=== PATIENT | female | born 1970 | race Caucasian/White ===

== ENCOUNTER → 2017-02-17 | Outpatient (CLI) | payer OTHER ==
--- NOTE | 2017-02-17 17:54 | MR ---
EXAMINATION TYPE: MR brain wo con DATE OF EXAM: 02/17/2017 5:47 PM COMPARISON: NONE HISTORY: Headaches, Dizzy, Hearing Loss Multiplanar and multispin-echo imaging of the brain was performed . The ventricles, basal cisterns and sulci overlying the cerebral convexities are within normal limits. There is no evidence for midline shift or mass effect. Acute intracranial hemorrhage or extra-axial collection is not evident. The brain parenchyma reveals no abnormal increased signal. No acute edema is identified. The mastoid air cells are well-aerated. Moderate mucosal thickening of the right maxillary sinus with mild thickening of the left maxillary s inus and ethmoid air cells compatible with chronic sinusitis. IMPRESSION: Unremarkable MRI of the brain. Chronic sinusitis.
== END | disposition home or self-care (01) ==
LOC: RADMRIMAIN 17:15
PROVIDERS: ATTEND Psychiatry & Neurology Pain Medicine
DX: R51 Headache (principal)
CPT/HCPCS: 70551

== ENCOUNTER → 2017-03-12 | Outpatient (CLI) | payer OTHER ==
--- NOTE | 2017-03-12 15:59 | US ---
EXAMINATION TYPE: US transvaginal DATE OF EXAM: 03/12/2017 COMPARISON: NONE CLINICAL HISTORY: Bloating R14.0. Abdominal/pelvic bloating x 5 days; patient stated went to EC depar tment at another hospital and was found to have low potassium; ; C section x 1 TECHNIQUE: Transvaginal (TV) as patient's bladder not full and patient chose to have TV US Date of LMP: 02/26/2017 EXAM MEASUREMENTS: Uterus: 7.8 x 4.4 x 3.8cm cm Endometrial Stripe: upper right 0.4 cm and upper left endometrium = 0.3cm Right Ovary: 2.3 x 1.1 x 1.3 cm Left Ovary: 2.6 x 3.1 x 2.1 cm 1. Uterus: Anteverted; C Section scar is noted at JOSE with fluid area at scar = 1.2 x 1.2 x 0.5cm; N abothian cyst in CX = 0.5 x 0.5 x 0.3cm 2. Endometrium: Within normal limits 3. Right Ovary: couple follicles with larger = 0.8 x 0.8 x 0.8cm and small amount free fluid noted m edial to ovary 4. Left Ovary: multiple follicles with largest as complex dominant follicle =2.2 x 2.0 x 1.8cm Spectral, color and waveform doppler imaging shows good arterial and venous flow within the ovaries ; there is no evidence for ovarian torsion. 5. Bilateral Adnexa: wnl 6. Posterior cul-de-sac: wnl IMPRESSION: 1. Complex dominant follicle of the left ovary, likely relating to a hemorrhagic follicle. Follow-up in 3 menstrual cycles is recommended to ensure resolution. 2. Scarring in the lower uterine segment of the uterus from prior . 3. Unremarkable endometrial thickness in appearance to the right ovary.
== END | disposition home or self-care (01) ==
LOC: RADUSWWP 14:58
PROVIDERS: ATTEND Family Medicine
DX: R14.0 Abdominal distension (gaseous) (principal); N85.8 Other specified noninflammatory disorders of uterus; Z98.891 History of uterine scar from previous surgery
CPT/HCPCS: 76830

== ENCOUNTER → 2017-07-30 | Outpatient (CLI) | payer OTHER ==
[2017-07-30 16:25] LABS: Basophils % (A) 0 %; Eosinophils # (A) 0.4 k/uL (0-0.7); Eosinophils % (A) 4 %; HCT 39.2 % (34.0-46.0); HGB 12.1 gm/dL (11.4-16.0); Hypochromasia Slight; Lymphocytes # (A) 3.4 k/uL (1.0-4.8); Lymphocytes % (A) 35 %; MCH 28.1 pg (25.0-35.0); MCHC 30.9 g/dL (31.0-37.0); MCV 91.2 fL (80.0-100.0); Mean Platelet Volume 6.6; Monocytes # (A) 0.3 k/uL (0-1.0); Monocytes % (A) 3 %; Neutrophils # (A) 5.2 k/uL (1.3-7.7); Neutrophils % (A) 54 %; Platelet Count 424 k/uL (150-450); RDW 14.3 % (11.5-15.5); WBC 9.6 k/uL (3.8-10.6)
== END | disposition home or self-care (01) ==
LOC: LABWHC1 16:07
PROVIDERS: ATTEND Anesthesiology
DX: Z01.812 Encounter for preprocedural laboratory examination (principal)
CPT/HCPCS: 36415; 84132; 85025

== ENCOUNTER 2017-08-02 10:39 | Observation (INO) | payer OTHER ==
[2017-07-28 23:02] VITALS: BMI 23.9
[~2017-08-02 10:39] MED LIST: DEXAMETHASONE SOD PHOSPHATE 10 MG/ML 1 ML VIAL IV ONE; HEPARIN SODIUM,PORCINE 5,000 UNIT/ML 1 ML VIAL SQ ONE; LIDOCAINE 1% 20 ML VIAL (10MG/ML) FOR IV START INTRADERMA PRN; ONDANSETRON 4 MG/2 ML VIAL IVP ONE; SCOPOLAMINE 1.5MG/72HR PATCH TRANSDERM ONE; ceFAZolin IN SWFI 2 GM/20 ML SYRINGE IVP ONE
[2017-08-02 10:55] VITALS: RESP 16
[2017-08-02] MEDS: LACTATED RINGERS 1,000 ML IV SCH (11:00)
--- NOTE | 2017-08-02 11:22 | P.GSHP ---
History of Present Illness H&P Date: 08/02/17 Chief Complaint: GERD This a 46-year-old female for from Dr. Jean Pearson. MThe patient has had long- standing problems with reflux esophagitis. The patient underwent recent EGD is found have evidence of esophagitis. Patient has been well informed on the procedure of laparoscopic Lee fundoplication. The patient is aware the risk of the conversion to the open procedure, risk of injury to the stomach, liver and spleen. The patient is also a risk of recurrent GERD and dysphagia symptoms. The patient understands there is a postoperative diet of full liquids for 2 weeks after surgery. Past Medical History Past Medical History: Asthma, GERD/Reflux, Pneumonia, Rheumatoid Arthritis (RA) Additional Past Medical History / Comment(s): migraines, hialtal hernia, achalasia, "leaky bladder", hiatal hernia, History of Any Multi-Drug Resistant Organisms: None Reported Past Surgical History: Section, Tubal Ligation Additional Past Surgical History / Comment(s): ganglion cyst removed rt hand, epidural pain procedures, EGD Past Anesthesia/Blood Transfusion Reactions: No Reported Reaction Smoking Status: Current every day smoker - Past Family History Mother Family Medical History: Deep Vein Thrombosis (DVT) Medications and Allergies Home Medications Medication Instructions Recorded Confirmed Type Gabapentin [Neurontin] 800 mg PO QID 10/02/14 08/02/17 History Morphine Sulfate ER [Ms Contin 60 mg PO Q12HR 10/02/14 08/02/17 History 60Mg] Omeprazole [PriLOSEC] 40 mg PO AC-BID 10/02/14 08/02/17 History oxyCODONE-APAP 10-325MG [Percocet 1 each PO Q6HR PRN 10/02/14 08/02/17 History 10-325] ALPRAZolam [Xanax] 2 mg PO BID PRN 02/08/16 08/02/17 History Dextroamphetamine/Amphetamine 30 mg PO BID 02/08/16 08/02/17 History [Adderall] Venlafaxine HCl [Effexor] 150 mg PO BID 02/08/16 08/02/17 History Beclomethasone Dipropionate [Qvar 1 puff INHALATION BID 06/29/17 08/02/17 History 40 mcg] Brexpiprazole [Rexulti] 0.5 mg PO DAILY 06/29/17 08/02/17 History Cetirizine HCl [Zyrtec] 10 mg PO DAILY 06/29/17 08/02/17 History Oxybutynin Chloride 5 mg PO DAILY 06/29/17 08/02/17 History Triamterene/Hydrochlorothiazid 1 each PO DAILY 06/29/17 08/02/17 History [Triamterene-Hctz 37.5-25 mg Tb] Varenicline Tartrate [Chantix] 1 each PO BID 06/29/17 08/02/17 History Zonisamide [Zonegran] 100 mg PO BID 06/29/17 08/02/17 History Allergies Allergy/AdvReac Type Severity Reaction Status Date / Time amoxicillin trihydrate AdvReac Nausea & Verified 08/02/17 10:51 [From Augmentin] Vomiting potassium clavulanate AdvReac Nausea & Verified 08/02/17 10:51 [From Augmentin] Vomiting Surgical - Exam Vital Signs Temp Pulse Resp BP Pulse Ox 97.3 F L 72 16 121/73 97 08/02/17 10:54 08/02/17 10:54 08/02/17 10:54 08/02/17 10:54 08/02/17 10:54 - General well developed, no distress - Eyes PERRL - ENT normal pinna - Neck no masses - Respiratory normal expansion - Cardiovascular Rhythm: regular - Abdomen Abdomen: soft, non tender Assessment and Plan Assessment: GERD. We'll perform laparoscopic Lee fundal plication.
[2017-08-02] MEDS ORDERED: MIDAZOLAM 2 MG/2 ML VIAL ONE (11:38)
[2017-08-02] MEDS ORDERED: fentaNYL (PF) 50 MCG/ML 2 ML AMP ONE (11:38)
[2017-08-02] MEDS ORDERED: HYDROmorphone (PF) 1 MG/ML ONE (11:38)
[2017-08-02] MEDS ORDERED: NEOSTIGMINE 1 MG/ML 10 ML VIAL ONE (11:38)
[2017-08-02] MEDS ORDERED: GLYCOPYRROLATE 0.2 MG/ML 2 ML VIAL ONE (11:38)
[2017-08-02] MEDS ORDERED: PROPOFOL 10 MG/ML 20 ML VIAL IV ONE (11:38)
[2017-08-02] MEDS ORDERED: ROCURONIUM BROMIDE 10 MG/ML 10 ML VIAL IV ONE (11:38)
[2017-08-02] MEDS ORDERED: LIDOCAINE 1% INJ 10MG/ML (20 ML MDV) ONE (11:38)
[2017-08-02] MEDS ORDERED: SUCCINYLCHOLINE CHLORIDE 100 MG/5 ML SYR IV ONE (11:38)
[2017-08-02] MEDS ORDERED: SODIUM CHLORIDE 0.9% 50 ML with ceFAZolin 2,000 MG IV ONE ×2 (11:50)
[2017-08-02] MEDS ORDERED: BUPIVACAINE-EPI 0.5%-1:200,000 10 ML VIAL SQ ONE (11:57)
[2017-08-02] MEDS ORDERED: ONDANSETRON 4 MG/2 ML VIAL IVP PRN (12:50)
--- NOTE | 2017-08-02 12:50 | P.OP ---
Date of Procedure: 08/02/17 Preoperative Diagnosis: GERD Postoperative Diagnosis: GERD Procedure(s) Performed: Laparoscopic Lee fundal plication Anesthesia: ANDRE Surgeon: Franky Romero Estimated Blood Loss (ml): 5 Pathology: none sent Condition: stable Disposition: PACU Description of Procedure: The patient was placed on the operating table in the supine position. The patient received general anesthesia. And was placed in dorsal lithotomy position. The patient was prepped and draped in the usual sterile fashion. The skin incision sites were anesthetized with 1% local Xylocaine. The skin was incised in the left periumbilical area and then using a blade less 5 mm trocar under direct visualization panel cavity was entered. After adequate insufflation the laparoscope was then placed into the peritoneal cavity. Next a 5 mm trochars placed in the right epigastric position. Another 5 millimeter trocar the right lateral position. Another 5 millimeter trocar in the left lateral position a 5 mm trocar is placed in the left epigastric position. And then the initial 5 mm trocar was exchanged for a 10 mm trocar. The left lateral lobe liver was retracted. The hernia was seen. The crural defect was then dissected using the Harmonic scissors device. A 360 crural dissection was performed the esophagus stomach was reduced back into the peritoneal Cavity. The crural defect was then closed using 2-0 Ethibond suture. Next the fundus of the stomach was mobilized using the Harmonic scissors device. and then a 58-Welsh bougie dilator was placed oropharynx passed into the esophagus and stomach the fundal plication wrap was then performed by grasping the fundus posteriorly and bringing it around the esophagus and stomach fundoplication was then performed using 2-0 Ethibond suture. A 180 fundoplication was performed. Care was taken that the fundal location rested over top of the intra- abdominal esophagus. There was no injury seen to the stomach or esophagus. The dilator was then withdrawn. The abdomen was irrigated there is no bleeding seen. The trochars were then withdrawn and then skin incision sites were closed using 3-0 Monocryl suture Steri-Strips are applied. Patient thought procedure well and sent to recovery room in stable condition.
[2017-08-02] MEDS: HYDROmorphone 0.5 MG/0.5 ML SYRINGE IVP PRN ×3 (13:18→13:38)
[2017-08-02] MEDS: HYDROmorphone 2 MG/ML 1 ML SYRINGE IVP PRN ×3 (13:23→22:31)
[2017-08-02] MEDS: HYDROmorphone 1 MG/ML 1 ML SYRINGE IVP ONE ×2 (13:50→13:57)
[2017-08-02] MEDS: D5-0.45% NACL WITH KCL 20MEQ/L 1,000 ML IV SCH (16:07)
--- NOTE | 2017-08-02 16:55 | FL ---
EXAMINATION TYPE: FL esophagus cervic/pharynx DATE OF EXAM: 08/02/2017 HISTORY: Post Lee fundoplication COMPARISON: NONE TECHNIQUE: A single contrast esophagram is performed FINDINGS: There is mild delay at the level the GE junction. No obstruction or extravasation. IMPRESSION: Mild delay at the level of the GE junction
[2017-08-02] MEDS: FAMOTIDINE 20 MG/2 ML VIAL IV SCH (20:43)
[2017-08-03] MEDS: D5-0.45% NACL WITH KCL 20MEQ/L 1,000 ML IV SCH ×2 (02:20→11:28)
[2017-08-03] MEDS: HYDROmorphone 2 MG/ML 1 ML SYRINGE IVP PRN ×3 (02:20→11:27)
--- NOTE | 2017-08-03 05:04 | CONS ---
CONSULTATION This is a 46-year-old white female, status post Lee procedure for medical management/consult. Past history is tubal ligation and . History of asthma, GERD, pneumonia, rheumatoid arthritis, hiatal hernia, migraines, achalasia, leaky bladder. She has a history of ganglion cyst removal in the right hand and epidural pain procedures, EGD. Current everyday smoker. FAMILY HISTORY: Mother with DVT. HOME MEDICATIONS: 1. Neurontin 800 q.i.d. 2. MS Contin 60 mg q.12. 3. Prilosec 40 mg b.i.d. 4. Percocet 10 every 6 hours p.r.n. 5. Xanax . 6. Amphetamine 30 mg b.i.d. 7. Effexor 150 b.i.d. 8. Qvar 1 puff b.i.d. 9. Rexulti 0.5 mg daily. 10.Zyrtec 10 mg daily. 11.Oxybutynin 5 mg daily. 12.Dyazide 1 tablet daily. 13.Chantix 1 tab b.i.d. 14.Zonegran 100 mg b.i.d. ALLERGIES: AMOXICILLIN, POTASSIUM. PHYSICAL EXAM: Temp 97, pulse 72, respirations 16, blood pressure 120/70, O2 97%. CARDIOVASCULAR: S1, S2. LUNGS: Clear. GI: Soft. HEMATOLOGY: Negative Homans. PSYCH: Fair mood affect. NEUROLOGIC: Alert and oriented x3. OPHTHALMOLOGICAL: Negative. Pupils equal, round, reactive. GI: Incision clean, dry, intact. ASSESSMENT: Status post Lee fundoplication. Multiple medications, home medications will be ordered. Possible discharge home next 24 to 48 hours. She is asymptomatic from pulmonary and cardiac standpoint at this time. Medications were adjusted status post endoscopy. Status post barium swallow to see if surgery was successful. MMODL / IJN: [id number] /
[2017-08-03 08:33] VITALS: TEMP 97.8
[2017-08-03] MEDS ORDERED: ENOXAPARIN 40 MG/0.4 ML SYRINGE SQ SCH (09:00)
[2017-08-03] MEDS: LACTATED RINGERS 1,000 ML IV SCH (09:38)
[2017-08-03] MEDS: FAMOTIDINE 20 MG/2 ML VIAL IV SCH (09:51)
--- NOTE | 2017-08-03 12:31 | P.DS ---
Providers Date of admission: 08/02/17 22:44 Expected date of discharge: 08/03/17 Attending physician: Franky Romero Consults: 08/02/17 12:50 Consult Physician Routine Consulting Provider: Jean Broderick Reason/Comments: med manage Do you want consulting provider notified?: Yes Primary care physician: [facility] Course: 46-year-old female presented to undergo a laparoscopic lee fundoplication for long-standing problem with reflux esophagitis. Patient underwent a recent EGD which did show evidence of esophagitis. Patient tolerated the procedure was felt to be hemodynamically stable and appropriate proceed with a discharge on August 03. Postoperative diet to full liquids for 2 weeks after surgery was reinforced. Impression discharge diagnosis Status post August 02 laparoscopic Lee fundoplication for reflux esophagitis A recent EGD showing evidence of esophagitis Hiatal hernia Rheumatoid arthritis The above impression and plan of care have been discussed and directed by signing physician. [place] nurse practitioner acting as scribe for signing physician. Plan - Discharge Summary Discharge Rx Participant: No New Discharge Prescriptions: Continue Morphine Sulfate ER [Ms Contin] 60 mg PO Q12HR oxyCODONE-APAP 10-325MG [Percocet 10-325 mg] 1 tab PO BID PRN PRN Reason: Pain Gabapentin [Neurontin] 800 mg PO QID Omeprazole [PriLOSEC] 40 mg PO AC-BID Dextroamphetamine/Amphetamine [Adderall] 30 mg PO BID Beclomethasone Dipropionate [Qvar 40 mcg] 1 puff INHALATION RT-BID Brexpiprazole [Rexulti] 0.5 mg PO DAILY Cetirizine HCl [Zyrtec] 10 mg PO DAILY Oxybutynin Chloride 5 mg PO DAILY Zonisamide [Zonegran] 100 mg PO BID Varenicline Tartrate [Chantix] 1 tab PO BID ALPRAZolam [Xanax] 1 mg PO HS Venlafaxine HCl [Effexor XR] 150 mg PO BID Triamterene-Hctz 37.5-25Mg [Dyazide 37.5-25 Capsule] 1 cap PO DAILY Discharge Medication List Gabapentin [Neurontin] 800 mg PO QID 10/02/14 [History] Morphine Sulfate ER [Ms Contin] 60 mg PO Q12HR 10/02/14 [History] Omeprazole [PriLOSEC] 40 mg PO AC-BID 10/02/14 [History] oxyCODONE-APAP 10-325MG [Percocet 10-325 mg] 1 tab PO BID PRN 10/02/14 [History] Dextroamphetamine/Amphetamine [Adderall] 30 mg PO BID 02/08/16 [History] Beclomethasone Dipropionate [Qvar 40 mcg] 1 puff INHALATION RT-BID 06/29/17 [ History] Brexpiprazole [Rexulti] 0.5 mg PO DAILY 06/29/17 [History] Cetirizine HCl [Zyrtec] 10 mg PO DAILY 06/29/17 [History] Oxybutynin Chloride 5 mg PO DAILY 06/29/17 [History] Varenicline Tartrate [Chantix] 1 tab PO BID 06/29/17 [History] Zonisamide [Zonegran] 100 mg PO BID 06/29/17 [History] ALPRAZolam [Xanax] 1 mg PO HS 08/02/17 [History] Triamterene-Hctz 37.5-25Mg [Dyazide 37.5-25 Capsule] 1 cap PO DAILY 08/02/17 [ History] Venlafaxine HCl [Effexor XR] 150 mg PO BID 08/02/17 [History] Follow up Appointment(s)/Referral(s): Franky Romero MD [STAFF PHYSICIAN] - 2 Weeks Activity/Diet/Wound Care/Special Instructions: No tub bath for six weeks. Shower daily. No lifting over 10 pounds for the next 6 weeks. Full liquid for 2 weeks after surgery May use ice packs to surgical site. No driving while taking narcotic for pain. Keep dressings to surgical site dry Discharge Disposition: HOME SELF-CARE
[2017-08-03 12:45] VITALS: BP 127/73; PULSE 60
== END 2017-08-03 13:04 | disposition home or self-care (01) ==
LOC: OR 10:39 → 6PED 12:33 → OR 22:44
PROVIDERS: ADMIT Surgery; ATTEND Surgery
DX: K21.0 Gastro-esophageal reflux disease with esophagitis (principal); K44.9 Diaphragmatic hernia without obstruction or gangrene; J45.909 Unspecified asthma, uncomplicated; M06.9 Rheumatoid arthritis, unspecified; Z87.01 Personal history of pneumonia (recurrent); G43.909 Migraine, unspecified, not intractable, without status migrainosus; F17.200 Nicotine dependence, unspecified, uncomplicated; Z79.899 Other long term (current) drug therapy; Z79.891 Long term (current) use of opiate analgesic; Z79.51 Long term (current) use of inhaled steroids; Z88.0 Allergy status to penicillin; M79.7 Fibromyalgia
CPT/HCPCS: 74210; 81025

== ENCOUNTER 2018-03-09 18:17 | Emergency (ER) | payer OTHER ==
[2018-03-09 19:05] VITALS: BP 106/75; PULSE 94; RESP 18; TEMP 98.5
--- NOTE | 2018-03-09 20:31 | XR ---
EXAMINATION TYPE: XR KUB DATE OF EXAM: 03/09/2018 COMPARISON: NONE HISTORY: Swallowed a crown TECHNIQUE: 2 views FINDINGS: 2 upright views were obtained and show no sign of intestinal obstruction or pneumoperitoneu m. There is no sign of radiopaque foreign body. Lung bases are clear. There are no pathologic calcifi cations. IMPRESSION: Normal exam. No foreign body seen.
--- NOTE | 2018-03-09 20:32 | XR ---
EXAMINATION TYPE: XR chest 1V DATE OF EXAM: 03/09/2018 COMPARISON: NONE HISTORY: Chest pain. Swallowed a crown. TECHNIQUE: Single frontal view of the chest is obtained. FINDINGS: Heart and mediastinum are normal. Lungs are clear. Diaphragm is normal. There is no sign o f a radiopaque foreign body. IMPRESSION: Normal chest. No foreign body seen. No change.
--- NOTE | 2018-03-09 21:48 | ED ---
General Adult HPI - General Chief complaint: Skin/Abscess/Foreign Body Stated complaint: swallowed dental implant Time Seen by Provider: 03/09/18 19:36 Source: patient, RN notes reviewed Mode of arrival: ambulatory Limitations: no limitations - History of Present Illness Initial comments: 47-year-old female presents to the emergency department for a chief complaint of possible foreign body ingestion earlier today. Patient states she has had veneer tooth that has been loose, due to fix this week. However today it broke off and patient swallowed it. Patient states it does have a metal post on it. Patient is concerned about the metal post in any damage to cause. Patient denies any foreign body sensation. Patient denies any abdominal pain. Patient did attempt to make herself vomit multiple times which did not bring up the tooth. Patient has no other complaints at this time including shortness of breath, chest pain, abdominal pain, nausea or vomiting, headache, or visual changes. - Related Data Home Medications Medication Instructions Recorded Confirmed Gabapentin [Neurontin] 800 mg PO QID 10/02/14 03/09/18 Omeprazole [PriLOSEC] 20 mg PO DAILY 10/02/14 03/09/18 Zonisamide [Zonegran] 200 mg PO HS 06/29/17 03/09/18 Venlafaxine HCl [Effexor XR] 150 mg PO DAILY 08/02/17 03/09/18 Montelukast [Singulair] 10 mg PO HS 03/09/18 03/09/18 Allergies Allergy/AdvReac Type Severity Reaction Status Date / Time amoxicillin trihydrate AdvReac Nausea & Verified 03/09/18 19:40 [From Augmentin] Vomiting potassium clavulanate AdvReac Nausea & Verified 03/09/18 19:40 [From Augmentin] Vomiting Review of Systems ROS Statement: Those systems with pertinent positive or pertinent negative responses have been documented in the HPI. ROS Other: All systems not noted in ROS Statement are negative. Past Medical History Past Medical History: Asthma, GERD/Reflux, Pneumonia, Rheumatoid Arthritis (RA) Additional Past Medical History / Comment(s): migraines, hialtal hernia, achalasia, "leaky bladder", hiatal hernia, History of Any Multi-Drug Resistant Organisms: None Reported Past Surgical History: Section, Hernia Repair, Tubal Ligation Additional Past Surgical History / Comment(s): ganglion cyst removed rt hand, epidural pain procedures, EGD Past Anesthesia/Blood Transfusion Reactions: No Reported Reaction Past Psychological History: Anxiety, Bipolar, Depression Smoking Status: Current every day smoker Past Alcohol Use History: None Reported Past Drug Use History: Marijuana - Past Family History Mother Family Medical History: Deep Vein Thrombosis (DVT) General Exam Limitations: no limitations General appearance: alert, in no apparent distress Head exam: Present: atraumatic, normocephalic, normal inspection Eye exam: Present: normal appearance, PERRL, EOMI. Absent: scleral icterus, conjunctival injection, periorbital swelling ENT exam: Present: normal exam, normal oropharynx (No foreign body noted in the oropharynx. Patient is missing tooth 9.), mucous membranes moist Neck exam: Present: normal inspection, full ROM. Absent: tenderness, meningismus, lymphadenopathy Respiratory exam: Present: normal lung sounds bilaterally. Absent: respiratory distress, wheezes, rales, rhonchi, stridor Cardiovascular Exam: Present: regular rate, normal rhythm, normal heart sounds. Absent: systolic murmur, diastolic murmur, rubs, gallop, clicks GI/Abdominal exam: Present: soft, normal bowel sounds. Absent: distended, tenderness (No tenderness noted in the abdomen), guarding, rebound, rigid Course Vital Signs 03/09/ 19:02 Temperature 98.5 F Pulse Rate 94 Respiratory 18 Rate Blood Pressure 106/75 O2 Sat by Pulse 98 Oximetry Medical Decision Making - Medical Decision Making 47-year-old female presents to the emergency determine for possible foreign body ingestion occurring earlier today. Patient accidentally swallowed a veneer tooth. Patient denies any foreign body sensation in the throat. Patient denies any abdominal pain. Patient did attempt to make herself vomit multiple times but was not successful in bringing up the tooth. On exam patient does not have any abdominal tenderness. Oropharynx clear. X-ray KUB and chest shows no foreign bodies noted. I did discuss with patient that with time the tooth will pass in the stool. I educated patient that if she has severe abdominal pain or worsening symptoms to return to the emergency department. Patient is aware of this and will follow up with primary care in 1- 2 days otherwise. Disposition Clinical Impression: Foreign body ingestion Disposition: HOME SELF-CARE Condition: Good Instructions: Foreign Body Ingestion (ED) Additional Instructions: Watch for tooth to be passed in stool. Please follow up with primary care in 1- 2 days. If you have any worsening symptoms or abdominal pain return to the emergency department. Is patient prescribed a controlled substance at d/c from ED?: No Referrals: Jean Broderick MD [Primary Care Provider] - 1-2 days Time of Disposition: 21:47
== END 2018-03-09 22:35 | disposition home or self-care (01) ==
LOC: EC 18:17
DX: T18.9XXA Foreign body of alimentary tract, part unspecified, initial encounter (principal); J45.909 Unspecified asthma, uncomplicated; K21.9 Gastro-esophageal reflux disease without esophagitis; F41.9 Anxiety disorder, unspecified; F31.9 Bipolar disorder, unspecified; F17.200 Nicotine dependence, unspecified, uncomplicated; Z98.51 Tubal ligation status; Z98.890 Other specified postprocedural states; Z79.899 Other long term (current) drug therapy; Z88.0 Allergy status to penicillin
CPT/HCPCS: 71045; 74018; 99283

== ENCOUNTER 2021-08-14 18:51 | Emergency (ER) | payer OTHER ==
[2021-08-14 18:59] VITALS: TEMP 97.6
--- NOTE | 2021-08-14 20:09 | ED ---
General Adult HPI - General Chief complaint: Recheck/Abnormal Lab/Rx Stated complaint: covid test Time Seen by Provider: 08/14/21 19:45 Source: patient, RN notes reviewed Mode of arrival: ambulatory Limitations: no limitations - History of Present Illness Initial comments: Patient is a pleasant 50-year-old female presenting to the emergency department requesting testing for COVID-19. Patient states she was exposed and need to test to return to work. Patient denies any symptoms and has no complaints. - Related Data Home Medications Medication Instructions Recorded Confirmed Gabapentin [Neurontin] 800 mg PO QID 10/02/14 03/09/18 Omeprazole [PriLOSEC] 20 mg PO DAILY 10/02/14 03/09/18 Zonisamide [Zonegran] 200 mg PO HS 06/29/17 03/09/18 Venlafaxine HCl [Effexor XR] 150 mg PO DAILY 08/02/17 03/09/18 Montelukast [Singulair] 10 mg PO HS 03/09/18 03/09/18 Allergies Allergy/AdvReac Type Severity Reaction Status Date / Time amoxicillin trihydrate AdvReac Nausea & Verified 08/14/21 18:59 [From Augmentin] Vomiting potassium clavulanate AdvReac Nausea & Verified 08/14/21 18:59 [From Augmentin] Vomiting Review of Systems ROS Statement: Those systems with pertinent positive or pertinent negative responses have been documented in the HPI. ROS Other: All systems not noted in ROS Statement are negative. Constitutional: Denies: fever Eyes: Denies: eye pain ENT: Denies: ear pain Respiratory: Denies: cough Cardiovascular: Denies: chest pain Endocrine: Denies: fatigue Gastrointestinal: Denies: abdominal pain Past Medical History Past Medical History: Asthma, GERD/Reflux, Pneumonia, Rheumatoid Arthritis (RA) Additional Past Medical History / Comment(s): migraines, hialtal hernia, achalasia, "leaky bladder", hiatal hernia, History of Any Multi-Drug Resistant Organisms: None Reported Past Surgical History: Section, Hernia Repair, Tubal Ligation Additional Past Surgical History / Comment(s): ganglion cyst removed rt hand, epidural pain procedures, EGD Past Anesthesia/Blood Transfusion Reactions: No Reported Reaction Past Psychological History: Anxiety, Bipolar, Depression Smoking Status: Current every day smoker Past Alcohol Use History: None Reported Past Drug Use History: Marijuana - Past Family History Mother Family Medical History: Deep Vein Thrombosis (DVT) General Exam Limitations: no limitations General appearance: alert, in no apparent distress Head exam: Present: normocephalic Respiratory exam: Present: normal lung sounds bilaterally Cardiovascular Exam: Present: regular rate, normal rhythm Extremities exam: Present: normal inspection Neurological exam: Present: alert Psychiatric exam: Present: normal affect, normal mood Skin exam: Present: normal color Course Vital Signs 08/14/21 18:57 Temperature 97.6 F Pulse Rate 97 Respiratory 16 Rate Blood Pressure 145/68 O2 Sat by Pulse 98 Oximetry Medical Decision Making - Lab Data Lab Results 08/14/21 Range/Units 19:03 Coronavirus (PCR) Not Detected (Not Detectd) Disposition Clinical Impression: Exposure to COVID-19 virus Disposition: HOME SELF-CARE Condition: Stable Instructions (If sedation given, give patient instructions): Coronavirus Disease 2019 (COVID-19) Additional Instructions: There is potential for false negative test. Continue to wear a mask when exposed to other people. Return for fevers, difficulty breathing, not tolerating fluids, worsening or changing symptoms or other concerns. Is patient prescribed a controlled substance at d/c from ED?: No Referrals: Stephanie Rubio MD [Primary Care Provider] - 1-2 days Time of Disposition: 20:09
[2021-08-14 20:49] VITALS: RESP 18
[2021-08-14 20:51] VITALS: BP 143/78; PULSE 85
== END 2021-08-14 20:35 | disposition home or self-care (01) ==
LOC: EC 18:51
DX: Z11.52 Encounter for screening for COVID-19 (principal); Z20.822 Contact with and (suspected) exposure to COVID-19; J45.909 Unspecified asthma, uncomplicated; K21.9 Gastro-esophageal reflux disease without esophagitis; M06.9 Rheumatoid arthritis, unspecified; F31.9 Bipolar disorder, unspecified; F41.9 Anxiety disorder, unspecified; F17.200 Nicotine dependence, unspecified, uncomplicated; F12.90 Cannabis use, unspecified, uncomplicated; Z79.899 Other long term (current) drug therapy
CPT/HCPCS: 87635; 99282

== ENCOUNTER → 2021-10-31 | Outpatient (CLI) | payer OTHER ==
--- NOTE | 2021-10-31 08:48 | CTL ---
EXAMINATION TYPE: CT Low Dose Lung DATE OF EXAM ORDERED: 10/31/2021 HISTORY: Long-term tobacco use. Lung cancer screening CT DLP: 70.[address] CTDI: 2.40 mGy Automated exposure control for dose reduction was used. SCREENING VISIT: Baseline COMPARISON: None TECHNIQUE: Low dose computed tomography scan was performed through the chest at 1 mm thick sections a nd reconstructed images in multiple planes at 1 mm and [address] DIAGNOSTIC QUALITY: Satisfactory FINDINGS: LUNG NODULES: None. LUNGS: COPD: Severity: Mild to moderate Fibrosis: Severity: None Lymph nodes: No greater than 1.0 cm Other findings: Dependent atelectasis bilateral lower lobes. RIGHT PLEURAL SPACE: Effusion: None Calcification: None Thickening: None Pneumothorax: None LEFT PLEURAL SPACE: Effusion: None Calcification: None Thickening: None Pneumothorax: None HEART: Heart Size: Normal Coronary Calcification: None Pericardial Effusion: None OTHER FINDINGS: Upper abdomen: Visualized portion of liver is slightly hypodense relative to spleen consistent with d iffuse fatty infiltration Bony thorax: None Supraclavicular region: Thyroid gland only minimally imaged. Other: None IMPRESSION: Mild to moderate emphysematous change without significant greater than 5 mm pulmonary nod ules CT LUNG RAD AND CT CHEST RECOMMENDATION: Lung-Rad 1 Negative: Continue annual screening with LDCT in 12 months. S Modifier (other clinically significant findings): None
--- NOTE | 2021-10-31 09:05 | XR ---
EXAMINATION TYPE: XR shoulder complete RT DATE OF EXAM: 10/31/2021 COMPARISON: NONE HISTORY: Pain TECHNIQUE: Three views are submitted. FINDINGS: The osseous structures are intact. There is no acute fracture or dislocation. The AC joint arthropa thy. Perihilar and lower right lower lobe subsegmental changes in. IMPRESSION: 1. AC joint arthropathy. 2. Incidental note made of right perihilar subsegmental areas of consolidation in the right lung kian elate clinically.
--- NOTE | 2021-10-31 09:15 | BD ---
EXAMINATION TYPE: Axial Bone Density DATE OF EXAM: 10/31/2021 COMPARISON: NONE CLINICAL HISTORY: 50 years year old Female. ICD-10 CODE: M810 age-related osteoporosis. Height: 5 FT 2 1/4 IN Weight: 138 FRAX RISK QUESTIONS: Alcohol (3 or more units per day): NO Family History (Parent hip fracture): NO Glucocorticoids (More than 3mos): NO (Ex: prednisone, prednisolone, methylprednisolone, dexamethasone, and hydrocortisone). History of Fracture in Adulthood: YES Secondary Osteoporosis: 1. Type 1 Diabetes: NO 2. Hyperthyroidism: NO 3. Menopause before 45: NO 4. Malnutrition: NO 5. Chronic liver disease: NO Rheumatoid Arthritis: NO Current Tobacco Use: YES RISK FACTORS HISTORY OF: History of Wrist Fracture: RT WRIST When: 2006 Surgery to Spine/Hip(right/left)/Wrist (right/left): NO Family History of Osteoporosis: YES Active: YES Diet low in dairy products/other sources of calcium: NO Postmenopausal woman: YES Take estrogen and/or progesterone medications: NO Lost more than 2 inches in height since high school: NO Frequent falls: NO Poor Health: GOOD Hyperparathyroidism: NO Adrenal Insufficiency: NO MEDICATIONS: Additional Medications: OMEPRAZOLE, GABAPENTIN,SEROQUEL, LIPITOR,CLONIDINE Additional History: EXAM MEASUREMENTS: Bone mineral densitometry was performed using the [employer] System. Bone mineral density as measured about the Lumbar spine is: ----- L1-L4(G/cm2): 1.158 T Score Values are as follows: ----- L1: -0.4 ----- L2: 0.1 ----- L3: 0.2 ----- L4: -0.6 ----- L1-L4: -0.2 BASELINE Bone mineral density about the R hip (g/cm2): 0.881 Bone mineral density about the L hip (g/cm2): 0.881 T Score values are as follows: -----R Neck: -1.1 -----L Neck: -1.1 -----R Total: -1.2 -----L Total: -1.4 BASELINE FRAX%s: The graph provided illustrates a 8.2 % chance for a major osteoporotic fx and a 0.5% chance f or the hips probability for fx in 10 years time. IMPRESSION: Osteopenia (T Score between -2.5 and -1). There is slightly increased risk of fracture and the patient may be considered for treatment. Re-Screen 2-5 years. NOTE: T-SCORE=SD OF THE YOUNG ADULT MEAN.
--- NOTE | 2021-11-03 13:40 | MM ---
Reason for exam: screening (asymptomatic). Last mammogram was performed 12 years ago. History: Family history of breast cancer in cousin at age 34. Took hormonal contraceptives for 4 years beginning at age 16. Physical Findings: A clinical breast exam by your physician is recommended on an annual basis and results should be correlated with mammographic findings. MG 3D Screening Mammo W/Cad Bilateral CC and MLO view(s) were taken. Prior study comparison: November 07, 2009, left breast mammogram dig work up. October 22, 2009, bilateral digital screening mammogram. There are scattered fibroglandular densities. No significant changes when compared with prior studies. ASSESSMENT: Negative, BI-RAD 1 RECOMMENDATION: Routine screening mammogram of both breasts in 1 year.
== END | disposition home or self-care (01) ==
LOC: RADMAMWWP 06:59
PROVIDERS: ATTEND Internal Medicine
DX: Z12.31 Encounter for screening mammogram for malignant neoplasm of breast (principal); Z12.2 Encounter for screening for malignant neoplasm of respiratory organs; M85.89 Other specified disorders of bone density and structure, multiple sites; R91.8 Other nonspecific abnormal finding of lung field; M19.011 Primary osteoarthritis, right shoulder; Z87.891 Personal history of nicotine dependence; Z80.3 Family history of malignant neoplasm of breast
CPT/HCPCS: 71271; 77063; 77067; 77080

== ENCOUNTER 2021-12-19 10:19 | Day surgery (SDC) | payer OTHER ==
[2021-12-18 14:42] VITALS: BMI 24.7
[~2021-12-19 10:19] MED LIST changes: -DEXAMETHASONE SOD PHOSPHATE 10 MG/ML 1 ML VIAL IV ONE; -HEPARIN SODIUM,PORCINE 5,000 UNIT/ML 1 ML VIAL SQ ONE; +LACTATED RINGERS 1,000 ML IV SCH; -LIDOCAINE 1% 20 ML VIAL (10MG/ML) FOR IV START INTRADERMA PRN; -ONDANSETRON 4 MG/2 ML VIAL IVP ONE; -SCOPOLAMINE 1.5MG/72HR PATCH TRANSDERM ONE; -ceFAZolin IN SWFI 2 GM/20 ML SYRINGE IVP ONE
[2021-12-19 10:57] VITALS: TEMP 97.1
[2021-12-19] MEDS ORDERED: PROPOFOL 10 MG/ML 20 ML VIAL IV ONE (11:58)
--- NOTE | 2021-12-19 12:07 | P.PCN ---
Date of Procedure: 12/19/21 Procedure(s) Performed: BRIEF HISTORY: Patient is a 50-year-old pleasant white female scheduled for an elective colonoscopy as a part of screening for colorectal neoplasia. PROCEDURE PERFORMED: Attempted Colonoscopy. PREOPERATIVE DIAGNOSIS: Screening for colon cancer. IV sedation per Anesthesia. PROCEDURE: After informed consent was obtained, the patient, was brought into the endoscopy unit. IV sedation was administered by Anesthesia under continuous monitoring. Digital rectal examination was normal. Initially the Olympus CF-160 flexible video colonoscope was then inserted in the rectum, gradually advanced into the distal sigmoid colon there was solid stool noted in the rectum and the sigmoid colon. The lumen was not visible. At this time the procedure was terminated and the patient tolerated the procedure well. IMPRESSION: Poor prep and hence procedure terminated RECOMMENDATIONS: Findings of this examination were discussed with the patient as well as a family. He was advised to rescheduled for a screening colonoscopy colonoscopy with a two-day prep.
[2021-12-19 12:25] VITALS: RESP 16
[2021-12-19 12:44] VITALS: BP 105/58; PULSE 85
== END 2021-12-19 12:56 | disposition home or self-care (01) ==
LOC: ORWHC2ENDO 10:19
PROVIDERS: ATTEND Internal Medicine Gastroenterology
DX: Z12.11 Encounter for screening for malignant neoplasm of colon (principal); K21.9 Gastro-esophageal reflux disease without esophagitis; J45.909 Unspecified asthma, uncomplicated; F17.210 Nicotine dependence, cigarettes, uncomplicated; M06.9 Rheumatoid arthritis, unspecified; Z79.899 Other long term (current) drug therapy; Z88.0 Allergy status to penicillin
CPT/HCPCS: 81025; J2704; G0121

== ENCOUNTER 2022-01-27 21:05 | Observation (INO) | payer OTHER ==
[2022-01-27] MEDS ORDERED: SODIUM CHLORIDE 0.9% 1,000 ML IV STA (23:17)
[2022-01-27] MEDS ORDERED: diphenhydrAMINE 50 MG/ML 1 ML VIAL IVP STA (23:17)
--- NOTE | 2022-01-27 23:17 | ED ---
Overdose HPI - General Chief Complaint: Overdose Stated Complaint: Drug Intoxication Time Seen by Provider: 01/27/22 23:16 Source: patient, RN notes reviewed, old records reviewed Mode of arrival: ambulatory Limitations: no limitations, altered mental status - History of Present Illness Initial Comments: This is a 51-year-old female not altered becomes evident on the influence of some sort of drug abuse. Drug use. Patient is having nonpurposeful movements. It is unclear whether or drugs patient doesn't she is not willing to admit. In that matter she is a poor strain which she presents with friend who wants patient checked out. Patient is not taking suicide attempt MD Complaint: intentional overdose -: hour(s) Intent: unwilling to say How Overdose Was Discovered: family/friend present at time Context: Accidental Overdose: wanted to get high Associated Symptoms: depression Treatments Prior to Arrival: none - Related Data Home Medications Medication Instructions Recorded Confirmed Omeprazole [PriLOSEC] 30 mg PO DAILY 10/02/14 12/19/21 Crestor (Unknown Dose) 1 tab PO DAILY 12/18/21 12/19/21 Escitalopram Oxalate [Lexapro] 10 mg PO QAM 12/18/21 12/19/21 Fluticasone Nasal [place] [Flonase 1 spray EA NOSTRIL DAILY 12/18/21 12/19/21 Nasal [place]] Gabapentin 600 mg PO BID 12/18/21 12/19/21 Meloxicam (Unknown Dose) 1 tab PO DAILY 12/18/21 12/19/21 QUEtiapine FUMARATE [SEROquel] 300 mg PO HS 12/18/21 12/19/21 cloNIDine HCL [Catapres] 0.1 mg PO BID 12/18/21 12/19/21 Allergies Allergy/AdvReac Type Severity Reaction Status Date / Time amoxicillin trihydrate AdvReac Nausea & Verified 01/27/22 22:36 [From Augmentin] Vomiting potassium clavulanate AdvReac Nausea & Verified 01/27/22 22:36 [From Augmentin] Vomiting Review of Systems ROS Statement: Those systems with pertinent positive or pertinent negative responses have been documented in the HPI. ROS Other: All systems not noted in ROS Statement are negative. Past Medical History Past Medical History: Asthma, GERD/Reflux, Pneumonia, Rheumatoid Arthritis (RA) Additional Past Medical History / Comment(s): Migraines, hialtal hernia, achalasia(causes difficulty swallowing), "leaky bladder", irregular heart beat, Pre-Diabetic. History of Any Multi-Drug Resistant Organisms: None Reported Past Surgical History: Section, Hernia Repair, Tubal Ligation Additional Past Surgical History / Comment(s): Ganglion cyst removed right hand, epidural pain procedures, EGD. Past Anesthesia/Blood Transfusion Reactions: No Reported Reaction Past Psychological History: Anxiety, Bipolar, Depression Smoking Status: Current every day smoker Past Alcohol Use History: None Reported Past Drug Use History: None Reported - Past Family History Mother Family Medical History: Deep Vein Thrombosis (DVT) General Exam General appearance: appears intoxicated (Altered), anxious Head exam: Present: atraumatic, normocephalic, normal inspection Eye exam: Present: normal appearance, PERRL, EOMI. Absent: scleral icterus, conjunctival injection, periorbital swelling ENT exam: Present: normal exam, mucous membranes moist Neck exam: Present: normal inspection. Absent: tenderness, meningismus, lymphadenopathy Respiratory exam: Present: normal lung sounds bilaterally. Absent: respiratory distress, wheezes, rales, rhonchi, stridor Cardiovascular Exam: Present: regular rate, normal rhythm, normal heart sounds. Absent: systolic murmur, diastolic murmur, rubs, gallop, clicks GI/Abdominal exam: Present: soft, normal bowel sounds. Absent: distended, tenderness, guarding, rebound, rigid Extremities exam: Present: normal inspection, full ROM, normal capillary refill. Absent: tenderness, pedal edema, joint swelling, calf tenderness Back exam: Present: normal inspection Neurological exam: Present: alert, oriented X3, CN II-XII intact Psychiatric exam: Present: normal affect, normal mood Skin exam: Present: warm, dry, intact, normal color. Absent: rash Course Vital Signs 01/27/22 22:27 Temperature 98 F Pulse Rate 62 Respiratory 19 Rate Blood Pressure 140/72 O2 Sat by Pulse 98 Oximetry - Reevaluation(s) Reevaluation #1: 01/27/22 23:30 Medical record is reviewed Reevaluation #2: 01/28/22 03:02 Patient remains significantly sedated chemically sedated secondary to drug intoxication Reevaluation #3: 01/28/22 03:02 (Patient remains somnolent throughout ER stay - Consultations Consultation #1: Spoke with Dr. Dr. Rubio who agrees to admit this patient Medical Decision Making - Medical Decision Making 51 female of unknown accidental versus intentional drug overdose. Patient be admitted for continued monitoring - Lab Data Result diagrams: 01/28/22 01:04 01/28/22 01:04 Lab Results 01/28/22 01/28/22 01/28/22 Range/Units 01:04 01:04 01:04 WBC 14.6 H (3.8-10.6) k/uL RBC 4.36 (3.80-5.40) m/uL Hgb 12.8 (11.4-16.0) gm/dL Hct 39.3 (34.0-46.0) % MCV 90.1 (80.0-100.0) fL MCH 29.3 (25.0-35.0) pg MCHC 32.5 (31.0-37.0) g/dL RDW 14.7 (11.5-15.5) % Plt Count 335 (150-450) k/uL MPV 7.1 Neutrophils % 64 % Lymphocytes % 26 % Monocytes % 6 % Eosinophils % 1 % Basophils % 1 % Neutrophils # 9.3 H (1.3-7.7) k/uL Lymphocytes # 3.8 (1.0-4.8) k/uL Monocytes # 0.9 (0-1.0) k/uL Eosinophils # 0.2 (0-0.7) k/uL Basophils # 0.1 (0-0.2) k/uL Hypochromasia Slight PT 10.4 (9.0-12.0) sec INR 0.9 (<1.2) Sodium 141 (137-145) mmol/L Potassium 3.5 (3.5-5.1) mmol/L Chloride 108 H (98-107) mmol/L Carbon Dioxide 25 (22-30) mmol/L Anion Gap 8 mmol/L BUN 16 (7-17) mg/dL Creatinine 0.59 (0.52-1.04) mg/dL Est GFR (CKD-EPI)AfAm >90 (>60 ml/min/1.73 sqM) Est GFR (CKD-EPI)NonAf >90 (>60 ml/min/1.73 sqM) Glucose 98 (74-99) mg/dL Calcium 9.2 (8.4-10.2) mg/dL Total Bilirubin 1.0 (0.2-1.3) mg/dL AST 40 H (14-36) U/L ALT 24 (4-34) U/L Alkaline Phosphatase 102 (38-126) U/L Total Protein 7.4 (6.3-8.2) g/dL Albumin 4.6 (3.5-5.0) g/dL Lipase 35 (23-300) U/L Salicylates <1.0 mg/dL Acetaminophen <10.0 ug/mL Serum Alcohol <10 mg/dL - EKG Data -: EKG Interpreted by Me (EKG shows sinus rhythm 62 IA 149 QRS 100 QTc 443) - Radiology Data Radiology results: report reviewed (CT brain negative for acute disease), image reviewed Disposition Clinical Impression: Accidental drug overdose, Drug overdose Disposition: ADMITTED IP TO THIS HOSP Condition: Fair Is patient prescribed a controlled substance at d/c from ED?: No Referrals: Stephanie Rubio MD [Primary Care Provider] - 1-2 days
[2022-01-27] MEDS ORDERED: diphenhydrAMINE 50 MG/ML 1 ML VIAL IM STA (23:54)
[2022-01-27] MEDS ORDERED: HALOPERIDOL LACTATE 5 MG/ML 1 ML VIAL IM STA (23:55)
[2022-01-28 01:16] LABS: Basophils # (A) 0.1 k/uL (0-0.2); Basophils % (A) 1 %; Eosinophils # (A) 0.2 k/uL (0-0.7); Eosinophils % (A) 1 %; HCT 39.3 % (34.0-46.0); HGB 12.8 gm/dL (11.4-16.0); Hypochromasia Slight; Lymphocytes # (A) 3.8 k/uL (1.0-4.8); Lymphocytes % (A) 26 %; MCH 29.3 pg (25.0-35.0); MCHC 32.5 g/dL (31.0-37.0); MCV 90.1 fL (80.0-100.0); Mean Platelet Volume 7.1; Monocytes # (A) 0.9 k/uL (0-1.0); Monocytes % (A) 6 %; Neutrophils # (A) 9.3 k/uL (1.3-7.7); Neutrophils % (A) 64 %; Platelet Count 335 k/uL (150-450); RBC 4.36 m/uL (3.80-5.40); RDW 14.7 % (11.5-15.5); WBC 14.6 k/uL (3.8-10.6)
[2022-01-28 01:27] LABS: ALT 24 U/L (4-34); AST 40 U/L (14-36); Acetaminophen <10.0 ug/mL; African American GFR (CKD) >90 (>60 ml/min/1.73 sqM); Albumin 4.6 g/dL (3.5-5.0); Alcohol <10 mg/dL; Alkaline Phosphatase 102 U/L (38-126); Anion Gap 8 mmol/L; Blood Urea Nitrogen 16 mg/dL (7-17); Calcium 9.2 mg/dL (8.4-10.2); Carbon Dioxide 25 mmol/L (22-30); Chloride 108 mmol/L (98-107); Glucose 98 mg/dL (74-99); Lipase 35 U/L (23-300); Non-African American GFR(CKD) >90 (>60 ml/min/1.73 sqM); Potassium 3.5 mmol/L (3.5-5.1); Salicylate <1.0 mg/dL; Sodium 141 mmol/L (137-145); Total Protein 7.4 g/dL (6.3-8.2)
[2022-01-28 01:41] LABS: INR 0.9 (<1.2); Prothrombin Time 10.4 sec (9.0-12.0)
[2022-01-28] MEDS ORDERED: ONDANSETRON 4 MG/2 ML VIAL IVP PRN (02:59)
[2022-01-28] MEDS ORDERED: NALOXONE 0.4 MG/ML 1 ML VIAL IV PRN (02:59)
[2022-01-28] MEDS ORDERED: DIAZEPAM 5 MG/ML 2 ML INJ IVP PRN (03:01)
[2022-01-28] MEDS: SODIUM CHLORIDE 0.9% 1,000 ML IV SCH ×3 (03:18→15:43)
[2022-01-28 06:15] LABS: Amphetamine Screen,Urine Detected (NotDetected); Barbiturate Screen,Urine Not Detected (NotDetected); Benzodiazepines Screen,Urine Not Detected (NotDetected); Cocaine Screen,Urine Not Detected (NotDetected); Methadone Screen, Urine Not Detected (NotDetected); Opiate Screen,Urine Not Detected (NotDetected); Oxycodone Screen, Urine Not Detected (NotDetected); Phencyclidine Screen,Urine Not Detected (NotDetected); Tricyclic Antidepressant,Urine Not Detected (NotDetected); Urn Cannabinoid Scrn Not Detected (NotDetected)
--- NOTE | 2022-01-28 06:18 | CT ---
EXAMINATION TYPE: CT brain wo con DATE OF EXAM: 01/28/2022 HISTORY: Drug overdose with altered mental status CT DLP: 1122 mGycm. Automated Exposure Control for Dose Reduction was Utilized. TECHNIQUE: CT scan of the head is performed without contrast. COMPARISON: CT brain May 31, 2015 FINDINGS: There is no acute intracranial hemorrhage or midline shift identified. Ventricles and sul ci within normal limits in size for patient's age. Becker-white matter differentiation maintained. The globes are intact and the visualized sinuses are clear. IMPRESSION: Unremarkable study. No significant change from prior.
[2022-01-28] MEDS ORDERED: ALBUTEROL HFA INHALER INHALATION PRN (12:21)
--- NOTE | 2022-01-28 12:31 | P.HPIM ---
History of Present Illness H&P Date: 01/28/22 HISTORY OF PRESENT ILLNESS This is a 51-year-old female with past medical history of hypertension, hyperlipidemia, gastroesophageal reflux disease, mild intermittent asthma, recur rent depression and PTSD, tobacco use and dependence. Patient was brought into [facility] emergency center by a friend with concern for drug abuse. Patient is seen today on the [facility] floor and denies any use of medications, denies suicidal ideation. She states she last used methamphetamines 4 months ago. She denies any other illicit drug use or IV drug use, marijuana use. Patient has been groggy and lethargic this morning and just starting to wake up Patient was found to be afebrile, heart rate in the 60s, blood pressure 140/72, pulse ox 90% on room air. EKG sinus rhythm with no acute ST changes. WBC 14.6, hemoglobin 12.8, platelet count 335. Sodium 141, potassium 3.5, chloride 108, CO2 25, BUN 16 and creatinine 0.59. Blood sugar 98. Liver function tests were normal. Serum alcohol, serum acetaminophen and salicylate levels were normal. Lipase 35. Urine hCG not detected. Urine drug screen positive for amphetamines and methamphetamines. CAT scan of the brain revealed unremarkable study. No significant change. In the emergency center, patient was given 1 L of IV fluids, 1 dose of Haldol and 1 dose of Benadryl, admitted to the [facility] floor, consult with psychiatry. REVIEW OF SYSTEMS Constitutional: No fever, no chills, no night sweats. No weight change. No weakness, fatigue noted lethargy. Noted daytime sleepiness. EENT: No headache. No blurred vision or double vision, no loss of vision. No loss of Hearing, no ringing in the ears, no dizziness. No nasal drainage or congestion. No epistaxis. No sore throat. Lungs: No shortness of breath, cough, no sputum production. No wheezing. Cardiovascular: No chest pain, no lower extremity edema. No palpitations. No paroxysmal nocturnal dyspnea. No orthopnea. No lightheadedness or dizziness. No syncopal episodes. Abdominal: No abdominal pain. No nausea, vomiting. No diarrhea. No constipation. No bloody or tarry stools. No loss of appetite. Genitourinary: No dysuria, increased frequency, urgency. No urinary retention. Musculoskeletal: No myalgias. No muscle weakness, no gait dysfunction, no frequent falls. No back pain. No neck pain. Integumentary: No wounds, no lesions. No rash or pruritus. No unusual bruising. No change in hair or nails. Neurologic: No aphasia. No facial droop. Noted change in mentation. No head injury. No headache. No paralysis. No paresthesia. Psychiatric: No depression. Reports anxiety. No mood swings. Endocrine: No abnormal blood sugars. No weight change. No excessive sweating or thirst. No cold intolerance. SOCIAL HISTORY Patient is a smoker one pack per day for 30 years. She denies any alcohol use or marijuana use. She has history of methamphetamine use and states she last used 4 months ago. She denies any IV drug use or other illicit drug use. Patient lives at home alone. FAMILY HISTORY Mother is alive at age 75 with no major medical problems. Patient does not have any contact with her father. She has 1 brother with no major medical problems and one son and one daughter with no major medical problems. PHYSICAL EXAMINATION Gen: This is a 51-year-old female. She is resting in bed sleeping, opens eyes to verbal stimulation. HEENT: Head is atraumatic, normocephalic. Pupils equal, round. Sclerae is anicteric. NECK: Supple. No JVD. No lymphadenopathy. No thyromegaly. LUNGS: Coarse breath sounds bilaterally, no wheezing. No intercostal retractions. HEART: Regular rate and rhythm. No murmur. ABDOMEN: Soft. Bowel sounds are present. No masses. No tenderness. EXTREMITIES: No pedal edema. No calf tenderness. Dorsalis pedis +2 bilaterally. NEUROLOGICAL: Patient is awake, alert and oriented x3. Cranial nerves 2 through 12 are grossly intact. Strength 5/5 upper and lower extremities bilaterally. ASSESSMENT AND PLAN 1. Drug overdose, patient denies suicidal ideation. Psychiatric evaluation. Drug screen positive for amphetamines and methamphetamines. 2. Toxic metabolic encephalopathy. Patient's mental status is slowly improving. 3. Hypertension. Patient will be resumed on clonidine 0.1 mg twice daily with parameters to hold. 4. Hyperlipidemia. Continue Crestor 20 mg daily 5. Gastroesophageal reflux disease and GI prophylaxis. Continue omeprazole 40 mg daily, famotidine 40 mg at bedtime 6. Mild intermittent asthma. Continue albuterol inhaler as needed. 7. Recurrent depression, PTSD. Continue Seroquel 300 mg at bedtime, Lexapro 5 mg daily. 8. Tobacco use and dependence. Nicotine patch. 9. DVT prophylaxis. Lovenox subcu. Patient will be admitted to the hospital for a minimum of 2 night stay. DISCHARGE PLAN Return home or transfer to the mental health unit. Impression and plan of care have been directed as dictated by the signing physician. Gricelda Berrios nurse practitioner acting as scribe for signing physician. Past Medical History Past Medical History: Asthma, GERD/Reflux, Pneumonia, Rheumatoid Arthritis (RA) Additional Past Medical History / Comment(s): Migraines, hialtal hernia, achalasia(causes difficulty swallowing), "leaky bladder", irregular heart beat, Pre-Diabetic. History of Any Multi-Drug Resistant Organisms: None Reported Past Surgical History: Section, Hernia Repair, Tubal Ligation Additional Past Surgical History / Comment(s): Ganglion cyst removed right hand, epidural pain procedures, EGD. Past Anesthesia/Blood Transfusion Reactions: No Reported Reaction Past Psychological History: Anxiety, Bipolar, Depression Smoking Status: Current every day smoker Past Alcohol Use History: None Reported Past Drug Use History: None Reported - Past Family History Mother Family Medical History: Deep Vein Thrombosis (DVT) Medications and Allergies Home Medications Medication Instructions Recorded Confirmed Type Fluticasone Nasal [place]imer [Flonase 1 spray EA NOSTRIL BID 12/18/21 01/28/22 History Nasal Latimer] Gabapentin 1,200 mg PO BID 12/18/21 01/28/22 History QUEtiapine FUMARATE [SEROquel] 300 mg PO HS 12/18/21 01/28/22 History cloNIDine HCL [Catapres] 0.1 mg PO BID 12/18/21 01/28/22 History Albuterol Sulfate [Proair Hfa] 1 puff INHALATION RT-Q4H PRN 01/28/22 01/28/22 History Escitalopram [Lexapro] 5 mg PO DAILY 01/28/22 01/28/22 History Famotidine 40 mg PO HS 01/28/22 01/28/22 History Meloxicam [Mobic] 15 mg PO DAILY 01/28/22 01/28/22 History Nicotine 21Mg/24Hr Patch [Habitrol] 1 patch TRANSDERM DAILY 01/28/22 01/28/22 History Omeprazole 40 mg PO DAILY 01/28/22 01/28/22 History Rosuvastatin [Crestor] 20 mg PO DAILY 01/28/22 01/28/22 History Allergies Allergy/AdvReac Type Severity Reaction Status Date / Time amoxicillin trihydrate AdvReac Nausea & Verified 01/28/22 09:58 [From Augmentin] Vomiting potassium clavulanate AdvReac Nausea & Verified 01/28/22 09:58 [From Augmentin] Vomiting Physical Exam Vitals: Vital Signs Temp Pulse Pulse Resp BP BP Pulse Ox 01/28/22 06:42 98.5 F 65 20 128/73 91 L 01/28/22 03:19 87 18 137/76 95 01/27/22 22:27 98 F 62 19 140/72 98 Intake and Output 01/27/22 01/28/22 01/28/22 22:59 06:59 14:59 Intake Total 130 Balance 130 Intake: Intake, IV Titration 130 Amount Sodium Chloride 0.9% 1, 130 000 ml @ 130 mls/hr IV . Q7H42M [facility] Rx#:[id number] Other: Weight 108.862 kg Results CBC & Chem 7: 01/28/22 01:04 01/28/22 01:04 Labs: Abnormal Lab Results - Last 24 Hours (Table) 01/28/22 01/28/22 01/28/22 Range/Units 01:04 01:04 05:30 WBC 14.6 H (3.8-10.6) k/uL Neutrophils # 9.3 H (1.3-7.7) k/uL Chloride 108 H (98-107) mmol/L AST 40 H (14-36) U/L Ur Amphetamines Screen Detected H (NotDetected) U Methamphetamines Scrn Detected H (NotDetected)
[2022-01-28] MEDS: NICOTINE 21MG/24HR PATCH TRANSDERM SCH (13:26)
--- NOTE | 2022-01-28 13:55 | P.CN ---
Psychiatric Consult - . Consult date: 01/28/22 Consult:: 01/28/22 13:54 IDENTIFYING DATA: This patient is a , unemployed, 51-year-old female with significant history of methamphetamine abuse presents after an accidental overdose on methamphetamines. HISTORY OF PRESENT ILLNESS: The patient presented to the hospital on 01/28/2022, brought into the emergency department by a friend was concerned for drug abuse. Patient was noted to be groggy, lethargic, and sedated. The patient was subsequently admitted for further evaluation after an overdose. Psychiatry has been consulted for assessment of mental health. Upon evaluation on the medical floor, the patient is vehemently denying any suicidal or homicidal ideation, intention, and/or plan. She reports that she overdosed on methamphetamines unintentionally as she has been drug free for the last 4 months and only recently relapsed. She does report a significant history of bipolar disorder however is only able to recall being prescribed clonidine. The patient is currently not endorsing any significant symptoms of depression or anxiety at this time. She is denying any anhedonia, hopelessness, helplessness, change in appetite, change in sleep, or any suicidal ideation, intention, and/or plan. The patient denies any current periods of excessive energy, grandiosity, or racing thoughts. Patient is denying any paranoia or other delusions. She reports no auditory or visual hallucinations. The patient does report significant history of methamphetamine abuse. She does report that she was sober for 4 months. She appears to be contemplative on quitting. PAST PSYCHIATRIC HISTORY: Patient has a reported history of bipolar disorder. The patient is able to recall only clonidine. She reports a history of psychiatric hospitalization 25 years ago. Patient denies any psychiatric outpatient follow-up. She denies any prior attempts at suicide. PAST MEDICAL HISTORY: Past Medical History: Asthma, GERD/Reflux, Pneumonia, Rheumatoid Arthritis (RA) Additional Past Medical History / Comment(s): Migraines, hialtal hernia, achalasia(causes difficulty swallowing), "leaky bladder", irregular heart beat, Pre-Diabetic. History of Any Multi-Drug Resistant Organisms: None Reported Past Surgical History: Section, Hernia Repair, Tubal Ligation Additional Past Surgical History / Comment(s): Ganglion cyst removed right hand, epidural pain procedures, EGD. Past Anesthesia/Blood Transfusion Reactions: No Reported Reaction Past Psychological History: Anxiety, Bipolar, Depression Smoking Status: Current every day smoker Past Alcohol Use History: None Reported Past Drug Use History: None Reported ALLERGIES: Amoxicillin, potassium CHEMICAL DEPENDENCY HISTORY: The patient reports a 42-wxbs-ninn tobacco history. She denies any alcohol or marijuana use. She reports methamphetamine use. She is unable to determine whether her methamphetamines/amphetamines were laced with anything. FAMILY PSYCHIATRIC/SUBSTANCE USE HISTORY: No reported family psychiatric history. SOCIAL HISTORY: Patient currently lives in a camper. She is currently and is on her third marriage. She is currently unemployed. MENTAL STATUS EXAM: General Appearance: Patient appears to be stated age is alert, pleasant, and cooperative. Patient appears to have disheveled hygiene and grooming wearing hospital gown with fair eye contact. She has numerous colorful tattoos and pink dyed hair. Behavior: Patient is calmly lying in bed without any agitated behavior. Mildly elevated psychomotor activity. Poor eye contact. Speech: Patient's speech is fluent and nonpressured. Mood/Affect: Patient reports their mood is "feeling better", affect is nonchalant and calm. Suicidality/Homicidality: Patient denies any suicidal or homicidal ideation, in tention, and/or plan. Perceptions: Patient denies any visual hallucinations and denies any auditory hallucinations Though content/process: There is no evidence of any delusional thought content and thought process is linear and goal-directed. Memory and concentration: AOX3, grossly intact for the purposes of this session. Can spell "WORLD" backwards Judgment and insight: Fair Vital Signs Temp 98.5 F 01/28/22 06:42 Pulse 65 01/28/22 06:42 Resp 20 01/28/22 06:42 BP 128/73 01/28/22 06:42 Pulse Ox 91 L 01/28/22 06:42 FiO2 Intake & Output 01/27/22 01/28/22 01/28/22 18:59 06:59 18:59 Intake Total 130 Balance 130 Weight 108.862 kg Intake: Intake, IV Titration 130 Amount Sodium Chloride 0.9% 1, 130 000 ml @ 130 mls/hr IV . Q7H42M [facility] Rx#:[id number] Laboratory Results WBC 14.6 k/uL (3.8-10.6) H 01/28/22 01:04 RBC 4.36 m/uL (3.80-5.40) 01/28/22 01:04 Hgb 12.8 gm/dL (11.4-16.0) 01/28/22 01:04 Hct 39.3 % (34.0-46.0) 01/28/22 01:04 MCV 90.1 fL (80.0-100.0) 01/28/22 01:04 MCH 29.3 pg (25.0-35.0) 01/28/22 01:04 MCHC 32.5 g/dL (31.0-37.0) 01/28/22 01:04 RDW 14.7 % (11.5-15.5) 01/28/22 01:04 Plt Count 335 k/uL (150-450) 01/28/22 01:04 MPV 7.1 01/28/22 01:04 Neutrophils % 64 % 01/28/22 01:04 Lymphocytes % 26 % 01/28/22 01:04 Monocytes % 6 % 01/28/22 01:04 Eosinophils % 1 % 01/28/22 01:04 Basophils % 1 % 01/28/22 01:04 Neutrophils # 9.3 k/uL (1.3-7.7) H 01/28/22 01:04 Lymphocytes # 3.8 k/uL (1.0-4.8) 01/28/22 01:04 Monocytes # 0.9 k/uL (0-1.0) 01/28/22 01:04 Eosinophils # 0.2 k/uL (0-0.7) 01/28/22 01:04 Basophils # 0.1 k/uL (0-0.2) 01/28/22 01:04 Hypochromasia Slight 01/28/22 01:04 PT 10.4 sec (9.0-12.0) 01/28/22 01:04 INR 0.9 (<1.2) 01/28/22 01:04 Sodium 141 mmol/L (137-145) 01/28/22 01:04 Potassium 3.5 mmol/L (3.5-5.1) 01/28/22 01:04 Chloride 108 mmol/L (98-107) H 01/28/22 01:04 Carbon Dioxide 25 mmol/L (22-30) 01/28/22 01:04 Anion Gap 8 mmol/L 01/28/22 01:04 BUN 16 mg/dL (7-17) 01/28/22 01:04 Creatinine 0.59 mg/dL (0.52-1.04) 01/28/22 01:04 Est GFR (CKD-EPI)AfAm >90 (>60 ml/min/1.73 sqM) 01/28/22 01:04 Est GFR (CKD-EPI)NonAf >90 (>60 ml/min/1.73 sqM) 01/28/22 01:04 Glucose 98 mg/dL (74-99) 01/28/22 01:04 Calcium 9.2 mg/dL (8.4-10.2) 01/28/22 01:04 Total Bilirubin 1.0 mg/dL (0.2-1.3) 01/28/22 01:04 AST 40 U/L (14-36) H 01/28/22 01:04 ALT 24 U/L (4-34) 01/28/22 01:04 Alkaline Phosphatase 102 U/L (38-126) 01/28/22 01:04 Total Protein 7.4 g/dL (6.3-8.2) 01/28/22 01:04 Albumin 4.6 g/dL (3.5-5.0) 01/28/22 01:04 Lipase 35 U/L (23-300) 01/28/22 01:04 Urine HCG, Qual Not Detected (Not Detectd) 01/28/22 05:30 Salicylates <1.0 mg/dL 01/28/22 01:04 Urine Opiates Screen Not Detected (NotDetected) 01/28/22 05:30 Ur Oxycodone Screen Not Detected (NotDetected) 01/28/22 05:30 Urine Methadone Screen Not Detected (NotDetected) 01/28/22 05:30 Ur Propoxyphene Screen Not Detected (NotDetected) 01/28/22 05:30 Acetaminophen <10.0 ug/mL 01/28/22 01:04 Ur Barbiturates Screen Not Detected (NotDetected) 01/28/22 05:30 U Tricyclic Antidepress Not Detected (NotDetected) 01/28/22 05:30 Ur Phencyclidine Scrn Not Detected (NotDetected) 01/28/22 05:30 Ur Amphetamines Screen Detected (NotDetected) H 01/28/22 05:30 U Methamphetamines Scrn Detected (NotDetected) H 01/28/22 05:30 U Benzodiazepines Scrn Not Detected (NotDetected) 01/28/22 05:30 Urine Cocaine Screen Not Detected (NotDetected) 01/28/22 05:30 U Marijuana (THC) Screen Not Detected (NotDetected) 01/28/22 05:30 Serum Alcohol <10 mg/dL 01/28/22 01:04 Allergies Allergy/AdvReac Type Severity Reaction Status Date / Time amoxicillin trihydrate AdvReac Nausea & Verified 01/28/22 09:58 [From Augmentin] Vomiting potassium clavulanate AdvReac Nausea & Verified 01/28/22 09:58 [From Augmentin] Vomiting IMPRESSIONS: Drug overdose - reported his accidental. Patient is not endorsing any significant symptoms of depression or suicidal ideation at this time. PTSD, as per history Bipolar disorder, as per history Tobacco use disorder Methamphetamine use disorder PLAN: -At this time patient DOES NOT meet criteria for inpatient psychiatric admission. The patient does live a high risk lifestyle with current substance abuse however is not endorsing any auditory or visual hallucinations or suicidal or homicidal ideation. Her primary diagnosis at this time is substance use rel ated. She also appears to be somewhat pre-contemplative at this time. -Would recommend the following medication changes/additions: Agree with restarting Seroquel 300 mg by mouth at bedtime for mood stabilization Increase Lexapro to 10 g by mouth daily for depression/PTSD and to replenish serotonin stores Agree with Catapres 0.1 mg by mouth twice a day for methamphetamine withdrawal -Recommend resources for substance abuse. -Recommend outpatient psychiatric follow-up. -Psychiatry will sign off at this point, please contact with any questions. 01/28/22 13:54
[2022-01-28] MEDS ORDERED: FAMOTIDINE 20 MG TAB PO SCH (21:00)
[2022-01-28] MEDS ORDERED: QUEtiapine 100 MG TAB PO SCH (21:00)
[2022-01-28] MEDS: cloNIDine HCL 0.1 MG TAB PO SCH (21:01)
[2022-01-28] MEDS: FLUTICASONE 50MCG/SPRAY NASAL 16GM EA NOSTRIL SCH (21:18)
[2022-01-29] MEDS: cloNIDine HCL 0.1 MG TAB PO SCH (07:29)
[2022-01-29] MEDS: NICOTINE 21MG/24HR PATCH TRANSDERM SCH (07:30)
[2022-01-29] MEDS ORDERED: PANTOPRAZOLE 40 MG TABLET PO SCH (07:30)
[2022-01-29 08:20] VITALS: BP 146/66; PULSE 69; RESP 16; TEMP 98.8
[2022-01-29] MEDS ORDERED: ESCITALOPRAM 10 MG TAB PO SCH (09:00)
[2022-01-29] MEDS ORDERED: ESCITALOPRAM 5 MG TAB PO SCH (09:00)
[2022-01-29] MEDS ORDERED: ATORVASTATIN 40 MG TAB PO SCH (09:00)
[2022-01-29] MEDS: FLUTICASONE 50MCG/SPRAY NASAL 16GM EA NOSTRIL SCH (09:32)
[2022-01-29 10:16] LABS: Basophils # (A) 0.03 X 10*3/uL (0.00-0.10); Basophils % (A) 0.3 %; Eosinophils # (A) 0.21 X 10*3/uL (0.04-0.35); Eosinophils % (A) 2.1 %; HCT 38.9 % (37.2-46.3); HGB 11.8 g/dL (12.0-15.0); Immature Grans, Automated 0.4 %; Lymphocytes # (A) 3.66 X 10*3/uL (0.90-5.00); Lymphocytes % (A) 36.5 %; MCH 27.4 pg (27.0-32.0); MCHC 30.3 g/dL (32.0-37.0); MCV 90.5 fL (80.0-97.0); Mean Platelet Volume 9.7 fL (9.5-12.2); Monocytes # (A) 0.86 X 10*3/uL (0.20-1.00); Monocytes % (A) 8.6 %; NRBC Per 100 WBC 0 /100 WBCS (0.0-0.0); Neutrophils # (A) 5.24 X 10*3/uL (1.80-7.70); Neutrophils % (A) 52.1 %; Platelet Count 318 X 10*3/uL (140-440); RDW 15.1 % (11.5-14.5); WBC 10.04 X 10*3/uL (4.50-10.00)
[2022-01-29 10:33] LABS: African American GFR (CKD) 129.9 (60.0-200.0); Albumin 3.8 g/dL (3.8-4.9); Albumin/Globulin Ratio 1.9 (1.60-3.17); Anion Gap 11.7 mmol/L (10.00-18.00); BUN/Creat Ratio 22.2 Ratio (12.00-20.00); Blood Urea Nitrogen 11.1 mg/dL (9.0-27.0); Calcium 8.3 mg/dL (8.7-10.3); Carbon Dioxide 23.3 mmol/L (20.0-27.5); Non-African American GFR(CKD) 112.1 (60.0-200.0); Potassium 3.4 mmol/L (3.5-5.5); Total Bilirubin 0.5 mg/dL (0.30-1.20); Total Protein 5.8 g/dL (6.2-8.2)
[2022-01-29] MEDS: SODIUM CHLORIDE 0.9% 1,000 ML IV SCH (10:52)
[2022-01-29] MEDS ORDERED: POTASSIUM CHLORIDE ER 20 MEQ TAB.ER PO STA (12:31)
--- NOTE | 2022-01-29 13:28 | P.DS ---
Providers Date of admission: 01/28/22 02:59 Expected date of discharge: 01/29/22 Attending physician: Stephanie Rubio Consults: 01/28/22 02:59 Consult Physician Routine Consulting Provider: Saroj Blount Consult Reason/Comments: OD Do you want consulting provider notified?: Yes Primary care physician: Stephanie Rubio [facility] Hospital Course: HISTORY OF PRESENT ILLNESS This is a 51-year-old female with past medical history of hypertension, hyperlipidemia, gastroesophageal reflux disease, mild intermittent asthma, recurrent depression and PTSD, tobacco use and dependence. Patient was brought into [facility] emergency center by a friend with concern for drug abuse. Patient is seen today on the MedSurg floor and denies any use of medications, denies suicidal ideation. She states she last used methamphetamines 4 months ago. She denies any other illicit drug use or IV drug use, marijuana use. Patient has been groggy and lethargic this morning and just starting to wake up Patient was found to be afebrile, heart rate in the 60s, blood pressure 140/72, pulse ox 90% on room air. EKG sinus rhythm with no acute ST changes. WBC 14.6, hemoglobin 12.8, platelet count 335. Sodium 141, potassium 3.5, chloride 108, CO2 25, BUN 16 and creatinine 0.59. Blood sugar 98. Liver function tests were normal. Serum alcohol, serum acetaminophen and salicylate levels were normal. Lipase 35. Urine hCG not detected. Urine drug screen positive for amphetamines and methamphetamines. CAT scan of the brain revealed unremarkable study. No significant change. In the emergency center, patient was given 1 L of IV fluids, 1 dose of Haldol and 1 dose of Benadryl, admitted to the MedSurg floor, consult with psychiatry. 01/29: Patient was seen by psychiatry with recommendations for restarting Seroquel 300 mg at bedtime, increase Lexapro to 10 mg daily, agree with Catapres 0.1 mg twice daily. Also recommend resources for substance abuse and psychiatric follow-up. Psychiatry has now signed off her case. Patient has been afebrile, heart rate 69, blood pressure 146/66, pulse ox 92% on room air. Repeat blood work reveals WBC 10, hemoglobin 10.8, platelet count 318. Potassium 3.4 will be replaced otherwise electrolytes and renal function normal, her function tests normal. spinning room worker has provided patient with outpatient follow-up information and resources. Patient will be discharged home today in stable condition. DISCHARGE DIAGNOSES 1. Drug overdose, patient denies suicidal ideation, substance abuse disorder. 2. Toxic metabolic encephalopathy. 3. Hypertension. 4. Hyperlipidemia. 5. Gastroesophageal reflux disease. 6. Mild intermittent asthma. 7. Recurrent depression, PTSD. 8. Tobacco use and dependence. DISCHARGE PLAN Return home Greater than 35 minutes was utilized and coordinating patient's discharge. Impression and plan of care have been directed as dictated by the signing physician. Gricelda Berrios nurse practitioner acting as scribe for signing physician. Patient Condition at Discharge: Good Plan - Discharge Summary Discharge Rx Participant: No New Discharge Prescriptions: New Escitalopram [Lexapro] 10 mg PO DAILY #30 tab Continue cloNIDine HCL [Catapres] 0.1 mg PO BID Omeprazole 40 mg PO DAILY Meloxicam [Mobic] 15 mg PO DAILY Famotidine 40 mg PO HS QUEtiapine FUMARATE [SEROquel] 300 mg PO HS Gabapentin 1,200 mg PO BID Fluticasone Nasal [place] [Flonase Nasal [place]] 1 spray EA NOSTRIL BID Albuterol Sulfate [Proair Hfa] 1 puff INHALATION RT-Q4H PRN PRN Reason: Shortness Of Breath Nicotine 21Mg/24Hr Patch [Habitrol] 1 patch TRANSDERM DAILY Rosuvastatin [Crestor] 20 mg PO DAILY Discontinued Escitalopram [Lexapro] 5 mg PO DAILY Discharge Medication List Fluticasone Nasal [place] [Flonase Nasal [place]] 1 spray EA NOSTRIL BID 12/18/21 [History] Gabapentin 1,200 mg PO BID 12/18/21 [History] QUEtiapine FUMARATE [SEROquel] 300 mg PO HS 12/18/21 [History] cloNIDine HCL [Catapres] 0.1 mg PO BID 12/18/21 [History] Albuterol Sulfate [Proair Hfa] 1 puff INHALATION RT-Q4H PRN 01/28/22 [History] Famotidine 40 mg PO HS 01/28/22 [History] Meloxicam [Mobic] 15 mg PO DAILY 01/28/22 [History] Nicotine 21Mg/24Hr Patch [Habitrol] 1 patch TRANSDERM DAILY 01/28/22 [History] Omeprazole 40 mg PO DAILY 01/28/22 [History] Rosuvastatin [Crestor] 20 mg PO DAILY 01/28/22 [History] Escitalopram [Lexapro] 10 mg PO DAILY #30 tab 01/29/22 [Rx] Follow up Appointment(s)/Referral(s): Stephanie Rubio MD [Primary Care Provider] - 1 Week (office not answering at time of discharge. Please call to schedule appointment ) Discharge Disposition: HOME SELF-CARE
== END 2022-01-29 14:03 | disposition home or self-care (01) ==
LOC: EC 21:05 → 4SSUR 01-28 02:59
PROVIDERS: ADMIT Internal Medicine; ATTEND Internal Medicine
DX: T43.621A Poisoning by amphetamines, accidental (unintentional), initial encounter (principal); G92.8 Other toxic encephalopathy; I10 Essential (primary) hypertension; E78.5 Hyperlipidemia, unspecified; K21.9 Gastro-esophageal reflux disease without esophagitis; J45.20 Mild intermittent asthma, uncomplicated; F43.10 Post-traumatic stress disorder, unspecified; F31.9 Bipolar disorder, unspecified; Z87.01 Personal history of pneumonia (recurrent); M06.9 Rheumatoid arthritis, unspecified; G43.909 Migraine, unspecified, not intractable, without status migrainosus; K22.0 Achalasia of cardia; R73.03 Prediabetes; I49.9 Cardiac arrhythmia, unspecified; G25.9 Extrapyramidal and movement disorder, unspecified; F17.210 Nicotine dependence, cigarettes, uncomplicated; Z88.8 Allergy status to other drugs, medicaments and biological substances; Z88.0 Allergy status to penicillin; Z79.899 Other long term (current) drug therapy; Z79.1 Long term (current) use of non-steroidal anti-inflammatories (NSAID); Z82.49 Family history of ischemic heart disease and other diseases of the circulatory system
CPT/HCPCS: 96361 ×3; 96372; 96374; 99285; 36415; 94760; 93005; 80053 ×2; 83690; 85025 ×2; 85610; 81025; 80306; 80143; 80179; 70450; G0378 ×3; G0480; S4990 ×2; J1200; J1630; 80320

== ENCOUNTER 2024-02-19 15:08 | Emergency (ER) | payer OTHER ==
--- NOTE | 2024-02-19 16:09 | ED ---
General Adult HPI - General Chief complaint: Extremity Problem,Nontraumatic Stated complaint: L leg swelling Time Seen by Provider: 02/19/24 15:14 Source: patient, RN notes reviewed Mode of arrival: ambulatory Limitations: no limitations - History of Present Illness Initial comments: 53 year old female presents to the emergency department for evaluation of left lower extremity swelling x1 week. Patient reports that there appears to be some swelling to her left leg near her ankle. Denies any redness, warmth, skin changes. Denies known trauma. She does report walking more recently. - Related Data Home Medications Medication Instructions Recorded Confirmed Fluticasone Nasal [place] [Flonase 1 spray EA NOSTRIL BID 12/18/21 01/28/22 Nasal [place]] Gabapentin 1,200 mg PO BID 12/18/21 01/28/22 QUEtiapine FUMARATE [SEROquel] 300 mg PO HS 12/18/21 01/28/22 cloNIDine HCL [Catapres] 0.1 mg PO BID 12/18/21 01/28/22 Albuterol Sulfate [Proair Hfa] 1 puff INHALATION RT-Q4H PRN 01/28/22 01/28/22 Famotidine 40 mg PO HS 01/28/22 01/28/22 Meloxicam [Mobic] 15 mg PO DAILY 01/28/22 01/28/22 Nicotine 21Mg/24Hr Patch [Habitrol] 1 patch TRANSDERM DAILY 01/28/22 01/28/22 Omeprazole 40 mg PO DAILY 01/28/22 01/28/22 Rosuvastatin [Crestor] 20 mg PO DAILY 01/28/22 01/28/22 Previous Rx's Medication Instructions Recorded Escitalopram [Lexapro] 10 mg PO DAILY #30 tablet 01/29/22 Allergies Allergy/AdvReac Type Severity Reaction Status Date / Time amoxicillin trihydrate AdvReac Nausea & Verified 02/19/24 15:12 [From Augmentin] Vomiting potassium clavulanate AdvReac Nausea & Verified 02/19/24 15:12 [From Augmentin] Vomiting Review of Systems ROS Statement: Those systems with pertinent positive or pertinent negative responses have been documented in the HPI. ROS Other: All systems not noted in ROS Statement are negative. Past Medical History Past Medical History: Asthma, GERD/Reflux, Pneumonia, Rheumatoid Arthritis (RA) Additional Past Medical History / Comment(s): Migraines, hialtal hernia, achalasia(causes difficulty swallowing), "leaky bladder", irregular heart beat, Pre-Diabetic. History of Any Multi-Drug Resistant Organisms: None Reported Past Surgical History: Section, Hernia Repair, Tubal Ligation Additional Past Surgical History / Comment(s): Ganglion cyst removed right hand, epidural pain procedures, EGD. Past Anesthesia/Blood Transfusion Reactions: No Reported Reaction Past Psychological History: Anxiety, Bipolar, Depression Smoking Status: Current every day smoker Past Alcohol Use History: None Reported Past Drug Use History: None Reported - Past Family History Mother Family Medical History: Deep Vein Thrombosis (DVT) General Exam Limitations: no limitations General appearance: alert, in no apparent distress Head exam: Present: atraumatic, normocephalic, normal inspection Eye exam: Present: normal appearance, PERRL, EOMI. Absent: scleral icterus, conjunctival injection, periorbital swelling ENT exam: Present: normal exam, mucous membranes moist Respiratory exam: Present: normal lung sounds bilaterally. Absent: respiratory distress, wheezes, rales, rhonchi, stridor Cardiovascular Exam: Present: regular rate, normal rhythm, normal heart sounds. Absent: systolic murmur, diastolic murmur, rubs, gallop, clicks Extremities exam: Present: normal inspection, full ROM, normal capillary refill. Absent: tenderness, pedal edema, joint swelling, calf tenderness Back exam: Present: normal inspection Neurological exam: Present: alert, oriented X3 Psychiatric exam: Present: normal affect, normal mood Skin exam: Present: warm, dry, intact, normal color. Absent: rash Course Vital Signs 02/19/24 02/19/24 02/19/24 15:09 15:19 17:01 Temperature 97.8 F 97.7 F 97.9 F Pulse Rate 86 83 82 Respiratory 18 16 14 Rate Blood Pressure 134/79 123/71 127/69 O2 Sat by Pulse 98 96 99 Oximetry Medical Decision Making - Medical Decision Making Was pt. sent in by a medical professional or institution (, PA, SHAKER PLATE OPERATOR, urgent care, hospital, or correction...) When possible be specific @ -No Did you speak to anyone other than the patient for history (EMS, parent, family, police, friend...)? What history was obtained from this source @ -No Did you review nursing and triage notes (agree or disagree)? Why? @ -I reviewed and agree with nursing and triage notes Were old charts reviewed (outside hosp., previous admission, EMS record, old EKG, old radiological studies, urgent care reports/EKG's, correction records)? Report findings @ -No old charts were reviewed Differential Diagnosis (chest pain, altered mental status, abdominal pain women, abdominal pain men, vaginal bleeding, weakness, fever, dyspnea, syncope, headache, dizziness, GI bleed, back pain, seizure, CVA, palpatations, mental health, musculoskeletal)? @ -Differential Musculoskeletal Muscular strain, contusion, ligament sprain, fracture, arthritis, septic arthritis, bursitis, cellulitis, muscle spasm, nerve compression, DVT, arterial occlusion, herpes zoster, electrolyte abnormality, tumor.... This is not meant to be in all inclusive list EKG interpreted by me (3pts min.). @ -None X-rays interpreted by me (1pt min.). @ -Left tib-fib x-ray shows no evidence of acute fracture or dislocation CT interpreted by me (1pt min.). @ -None done U/S interpreted by me (1pt. min.). @ -None done What testing was considered but not performed or refused? (CT, X-rays, U/S, labs)? Why? @ -None What meds were considered but not given or refused? Why? @ -None Did you discuss the management of the patient with other professionals (professionals i.e. , PA, SHAKER PLATE OPERATOR, lab, RT, psych nurse, social media developer, digital technician, teacher, medical officer psychiatry, case worker)? Give summary @ -No Was smoking cessation discussed for >3mins.? @ -No Was critical care preformed (if so, how long)? @ -No Were there social determinants of health that impacted care today? How? (Homelessness, low income, unemployed, alcoholism, drug addiction, transportation, low edu. Level, literacy, decrease access to med. care, skilled nursing, rehab)? @ -No Was there de-escalation of care discussed even if they declined (Discuss DNR or withdrawal of care, Hospice)? DNR status @ -No What co-morbidities impacted this encounter? (DM, HTN, Smoking, COPD, CAD, Cancer, CVA, ARF, Chemo, Hep., AIDS, mental health diagnosis, sleep apnea, morbid obesity)? @ -None Was patient admitted / discharged? Hospital course, mention meds given and route, prescriptions, significant lab abnormalities, going to OR and other pertinent info. @ -Discharge. Patient presented to the emergency department for evaluation of left lower extremity swelling. On examination, there is no significant swelling to the left lower extremity, no overlying skin changes, no calf tenderness. X- rays obtained which revealed no acute abnormality. Patient will be discharged home and advised to follow-up with her primary care provider as scheduled on Wednesday. She is understanding agreeable plan. Patient stable at time of discharge. Case discussed with Dr. Brown. Undiagnosed new problem with uncertain prognosis? @ -No Drug Therapy requiring intensive monitoring for toxicity (Heparin, Nitro, Insulin, Cardizem)? @ -No Were any procedures done? @ -No Diagnosis/symptom? @ -Leg swelling Acute, or Chronic, or Acute on Chronic? @ -Acute Uncomplicated (without systemic symptoms) or Complicated (systemic symptoms)? @ -De uncomplicated Side effects of treatment? @ -No Exacerbation, Progression, or Severe Exacerbation? @ -No Poses a threat to life or bodily function? How? (Chest pain, [place], [place], pneumonia, PE, COPD, DKA, ARF, appy, cholecystitis, CVA, Diverticulitis, Homicidal, Suicidal, threat to staff... and all critical care pts) @ -No Disposition Clinical Impression: Left leg swelling Disposition: HOME SELF-CARE Condition: Stable Instructions (If sedation given, give patient instructions): Leg Edema (ED) Additional Instructions: Please follow up with your primary care provider. Return to the emergency department for new or worsening symptoms. Is patient prescribed a controlled substance at d/c from ED?: No Referrals: Stephanie Rubio MD [Primary Care Provider] - 1-2 days
--- NOTE | 2024-02-19 16:22 | XR ---
EXAMINATION TYPE: XR tibia fibula LT DATE OF EXAM: 02/19/2024 CLINICAL HISTORY: pain TECHNIQUE: AP and lateral images of the left tibia and fibula are obtained. COMPARISON: None. FINDINGS: There is no acute fracture/dislocation evident. The joint spaces appear within normal gupta its. The overlying soft tissue appears unremarkable. IMPRESSION: There is no acute fracture or dislocation seen. ICD 10 NO FRACTURE, INITIAL EVALUATION
[2024-02-19 17:03] VITALS: BP 127/69; PULSE 82; RESP 14; TEMP 97.9
== END 2024-02-19 17:04 | disposition home or self-care (01) ==
LOC: EC 15:08
DX: M79.89 Other specified soft tissue disorders (principal); F17.200 Nicotine dependence, unspecified, uncomplicated; Z88.1 Allergy status to other antibiotic agents; Z88.0 Allergy status to penicillin
CPT/HCPCS: 99283

== ENCOUNTER → 2024-02-25 | Outpatient (CLI) | payer OTHER ==
--- NOTE | 2024-02-25 12:32 | XR ---
EXAMINATION TYPE: XR chest 2V DATE OF EXAM: 02/25/2024 12:08 PM CLINICAL INDICATION:Female, 53 years old with history of R05.3 Cough; [facility] COMPARISON: Chest radiographs from 03/09/2018 TECHNIQUE: XR chest 2V Frontal view of the chest. FINDINGS: Lungs/Pleura: There is no evidence of pleural effusion, focal consolidation, or pneumothorax. Pulmonary vascularity: Unremarkable. Heart/mediastinum: Cardiomediastinal silhouette is unremarkable. Musculoskeletal: No acute osseous pathology. Benign-appearing left proximal humerus is irregular scle rotic foci possibly representing benign enchondroma Other findings: None IMPRESSION: No acute cardiopulmonary disease/process.
== END | disposition home or self-care (01) ==
LOC: RADXRMAIN 11:41
PROVIDERS: ATTEND Internal Medicine
DX: R05.3 Chronic cough (principal)
CPT/HCPCS: 71046

== ENCOUNTER 2024-03-28 09:52 | Emergency (ER) | payer OTHER ==
[2024-03-28 10:00] VITALS: BP 129/80; PULSE 78; RESP 20; TEMP 98.4
--- NOTE | 2024-03-28 10:42 | XR ---
EXAMINATION TYPE: XR Hip RT and AP Pelvis DATE OF EXAM: 03/28/2024 COMPARISON: NONE HISTORY: Pain TECHNIQUE: A single AP view of the pelvis is obtained. Two views of the right hip are obtained. FINDINGS: There is acute displaced fracture involving the intertrochanteric portion of the right fem ur with significant displacement. Pubic rami intact. Calcification within the pelvis. Angulated appea j carlos of the left femur may be positional. IMPRESSION: 1. Suspect acute comminuted displaced fracture intertrochanteric portion right femur.
--- NOTE | 2024-03-28 10:56 | XR ---
EXAMINATION TYPE: XR chest 1V DATE OF EXAM: 03/28/2024 COMPARISON: 02/25/2024 HISTORY: Preop TECHNIQUE: Single frontal view of the chest is obtained. FINDINGS: There is no focal air space opacity, pleural effusion, or pneumothorax seen. The cardiac silhouette size is within normal limits. The osseous structures are intact. Sclerotic lesion of the left humeral head likely related to bone infarct or less likely chondroid lesion. Correlate clinical ly. IMPRESSION: No acute process.
--- NOTE | 2024-03-28 10:58 | ED ---
Fall HPI - General Chief Complaint: Fall Stated Complaint: fall/hip pain Time Seen by Provider: 03/28/24 10:00 Source: EMS, RN notes reviewed Mode of arrival: EMS Limitations: no limitations - History of Present Illness Initial Comments: 53-year-old female presents emergency department with chief complaint of a fall. Patient states she was getting off the bus when she fell onto her right side she had no head injury loss conscious complaint of right hip pain, right leg pain. Patient states she is on no blood thinners. Denies any back pain or any chest pain. Patient states she does take gabapentin, Seroquel and omeprazole. Patient denies any prior orthopedic injuries of her hips. - Related Data Home Medications Medication Instructions Recorded Confirmed Fluticasone Nasal [place] [Flonase 1 spray EA NOSTRIL BID 12/18/21 01/28/22 Nasal [place]] Gabapentin 1,200 mg PO BID 12/18/21 01/28/22 QUEtiapine FUMARATE [SEROquel] 300 mg PO HS 12/18/21 01/28/22 cloNIDine HCL [Catapres] 0.1 mg PO BID 12/18/21 01/28/22 Albuterol Sulfate [Proair Hfa] 1 puff INHALATION RT-Q4H PRN 01/28/22 01/28/22 Famotidine 40 mg PO HS 01/28/22 01/28/22 Meloxicam [Mobic] 15 mg PO DAILY 01/28/22 01/28/22 Nicotine 21Mg/24Hr Patch [Habitrol] 1 patch TRANSDERM DAILY 01/28/22 01/28/22 Omeprazole 40 mg PO DAILY 01/28/22 01/28/22 Rosuvastatin [Crestor] 20 mg PO DAILY 01/28/22 01/28/22 Previous Rx's Medication Instructions Recorded Escitalopram [Lexapro] 10 mg PO DAILY #30 tablet 01/29/22 Allergies Allergy/AdvReac Type Severity Reaction Status Date / Time amoxicillin trihydrate AdvReac Nausea & Verified 03/28/24 11:35 [From Augmentin] Vomiting potassium clavulanate AdvReac Nausea & Verified 03/28/24 11:35 [From Augmentin] Vomiting Review of Systems ROS Statement: Those systems with pertinent positive or pertinent negative responses have been documented in the HPI. ROS Other: All systems not noted in ROS Statement are negative. Past Medical History Past Medical History: Asthma, GERD/Reflux, Pneumonia, Rheumatoid Arthritis (RA) Additional Past Medical History / Comment(s): Migraines, hialtal hernia, achalasia(causes difficulty swallowing), "leaky bladder", irregular heart beat, Pre-Diabetic. History of Any Multi-Drug Resistant Organisms: None Reported Past Surgical History: Section, Hernia Repair, Tubal Ligation Additional Past Surgical History / Comment(s): Ganglion cyst removed right hand, epidural pain procedures, EGD. Past Anesthesia/Blood Transfusion Reactions: No Reported Reaction Past Psychological History: Anxiety, Bipolar, Depression Smoking Status: Current every day smoker Past Alcohol Use History: None Reported Past Drug Use History: None Reported - Past Family History Mother Family Medical History: Deep Vein Thrombosis (DVT) General Exam Limitations: no limitations General appearance: alert, in no apparent distress Head exam: Present: atraumatic, normocephalic, normal inspection Neck exam: Present: normal inspection, full ROM. Absent: tenderness, meningismus, lymphadenopathy Respiratory exam: Present: normal lung sounds bilaterally. Absent: respiratory distress, wheezes, rales, rhonchi, stridor Cardiovascular Exam: Present: regular rate, normal rhythm, normal heart sounds. Absent: systolic murmur, diastolic murmur, rubs, gallop, clicks GI/Abdominal exam: Present: soft, normal bowel sounds. Absent: distended, tenderness, guarding, rebound, rigid Extremities exam: Present: other (There is tenderness at the right hip, patient is in flexed position with external rotation, neurovascular intact) Back exam: Present: full ROM. Absent: tenderness Neurological exam: Present: alert, oriented X3, CN II-XII intact, reflexes normal. Absent: motor sensory deficit Course Vital Signs 03/28/24 09:54 Temperature 98.4 F Pulse Rate 78 Respiratory 20 Rate Blood Pressure 129/80 O2 Sat by Pulse 97 Oximetry Medical Decision Making - Medical Decision Making Was pt. sent in by a medical professional or institution (, PA, SUPERVISOR OF OFFICIALS, urgent care, hospital, or prison...) When possible be specific @ -No Did you speak to anyone other than the patient for history (EMS, parent, family, police, friend...)? What history was obtained from this source @ -No Did you review nursing and triage notes (agree or disagree)? Why? @ -I reviewed and agree with nursing and triage notes Were old charts reviewed (outside hosp., previous admission, EMS record, old EKG, old radiological studies, urgent care reports/EKG's, prison records)? Report findings @ -No old charts were reviewed Differential Diagnosis (chest pain, altered mental status, abdominal pain women, abdominal pain men, vaginal bleeding, weakness, fever, dyspnea, syncope, headache, dizziness, GI bleed, back pain, seizure, CVA, palpatations, mental health, musculoskeletal)? @ -Fall, right hip dislocation, right hip fracture, right hip contusion EKG interpreted by me (3pts min.). @ -As above X-rays interpreted by me (1pt min.). @ -Chest 1 view shows no acute cardiopulmonary process Right hip x-ray with AP pelvis showing displaced right IT fracture CT interpreted by me (1pt min.). @ -None done U/S interpreted by me (1pt. min.). @ -None done What testing was considered but not performed or refused? (CT, X-rays, U/S, labs)? Why? @ -None What meds were considered but not given or refused? Why? @ -None Did you discuss the management of the patient with other professionals (professionals i.e. , PA, SUPERVISOR OF OFFICIALS, lab, RT, psych nurse, social work coordinator, integrity assessor, teacher, us customs and border officer, case preparer and liner)? Give summary @ -Discussed the case with [facility] and orthopedics associate who recommended transfer, Jamey Villafuerte discussed case for transfer Was smoking cessation discussed for >3mins.? @ -No Was critical care preformed (if so, how long)? @ -No Were there social determinants of health that impacted care today? How? (Homelessness, low income, unemployed, alcoholism, drug addiction, transportation, low edu. Level, literacy, decrease access to med. care, [facility], rehab)? @ -No Was there de-escalation of care discussed even if they declined (Discuss DNR or withdrawal of care, Hospice)? DNR status @ -No What co-morbidities impacted this encounter? (DM, HTN, Smoking, COPD, CAD, Cancer, CVA, ARF, Chemo, Hep., AIDS, mental health diagnosis, sleep apnea, morbid obesity)? @ -None Was patient admitted / discharged? Hospital course, mention meds given and route, prescriptions, significant lab abnormalities, going to OR and other pert inent info. @ -Transferred patient presented after a fall getting off the bus. She has a right displaced IT fracture. Discussed with on-call orthopedics and back up with orthopedics who recommends transfer to [facility]. I discussed the case with Kendall, accepts transfer. Patient was provided analgesics. Patient had preoperative labs, EKG and chest x-ray. Undiagnosed new problem with uncertain prognosis? @ -No Drug Therapy requiring intensive monitoring for toxicity (Heparin, Nitro, In sulin, Cardizem)? @ -No Were any procedures done? @ -No Diagnosis/symptom? @ -Fall, displaced right IT fracture Acute, or Chronic, or Acute on Chronic? @ -acute Uncomplicated (without systemic symptoms) or Complicated (systemic symptoms)? @ -complicated Side effects of treatment? @ -No Exacerbation, Progression, or Severe Exacerbation? @ -No Poses a threat to life or bodily function? How? (Chest pain, [place], [place], pneumonia, PE, COPD, DKA, ARF, appy, cholecystitis, CVA, Diverticulitis, Homicidal, [place] icidal, threat to staff... and all critical care pts) @ -No - Lab Data Result diagrams: 03/28/24 10:50 03/28/24 10:50 Lab Results 03/28/24 03/28/24 Range/Units 10:50 10:50 WBC 17.2 H (3.8-10.6) k/uL RBC 4.59 (3.80-5.40) m/uL Hgb 13.3 (11.4-16.0) gm/dL Hct 41.1 (34.0-46.0) % MCV 89.5 (80.0-100.0) fL MCH 29.0 (25.0-35.0) pg MCHC 32.4 (31.0-37.0) g/dL RDW 14.6 (11.5-15.5) % Plt Count 476 H (150-450) k/uL MPV 7.7 Neutrophils % 84 % Lymphocytes % 12 % Monocytes % 3 % Eosinophils % 1 % Basophils % 0 % Neutrophils # 14.5 H (1.3-7.7) k/uL Lymphocytes # 2.1 (1.0-4.8) k/uL Monocytes # 0.5 (0-1.0) k/uL Eosinophils # 0.1 (0-0.7) k/uL Basophils # 0.0 (0-0.2) k/uL Sodium 139 (137-145) mmol/L Potassium 4.2 (3.5-5.1) mmol/L Chloride 106 (98-107) mmol/L Carbon Dioxide 27 (22-30) mmol/L Anion Gap 6 mmol/L BUN 14 (7-17) mg/dL Creatinine 0.60 (0.52-1.04) mg/dL Est GFR (CKD-EPI)AfAm >90 (>60 ml/min/1.73 sqM) Est GFR (CKD-EPI)NonAf >90 (>60 ml/min/1.73 sqM) Glucose 110 H (74-99) mg/dL Calcium 9.6 (8.4-10.2) mg/dL Magnesium 2.0 (1.6-2.3) mg/dL Total Bilirubin 0.5 (0.2-1.3) mg/dL AST 26 (14-36) U/L ALT 23 (4-34) U/L Alkaline Phosphatase 103 (38-126) U/L Total Protein 7.5 (6.3-8.2) g/dL Albumin 4.4 (3.5-5.0) g/dL - EKG Data -: EKG Interpreted by Sc EKG Comments: EKG performed at 11: 08 sinus rhythm rate of 74 AK 173 QRS 99 QT/QTc 396/424 Disposition Clinical Impression: Fall, Displaced intertrochanteric fracture of right femur Disposition: OTHER INSTITUTION NOT DEFINED Condition: Fair Referrals: Stephanie Rubio MD [Primary Care Provider] - 1-2 days Time of Disposition: 11:24 - Out of Hospital Transfer - Req. Specs Out of Hospital Transfer - Requested Specifics: Other Emergency Center (Jamey Villafuerte)
[2024-03-28] MEDS: HYDROmorphone 0.5 MG/0.5 ML SYRINGE IVP STA (11:21)
[2024-03-28 11:23] LABS: Basophils % (A) 0 %; Eosinophils # (A) 0.1 k/uL (0-0.7); Eosinophils % (A) 1 %; HCT 41.1 % (34.0-46.0); HGB 13.3 gm/dL (11.4-16.0); Lymphocytes # (A) 2.1 k/uL (1.0-4.8); Lymphocytes % (A) 12 %; MCHC 32.4 g/dL (31.0-37.0); MCV 89.5 fL (80.0-100.0); Mean Platelet Volume 7.7; Monocytes # (A) 0.5 k/uL (0-1.0); Monocytes % (A) 3 %; Neutrophils # (A) 14.5 k/uL (1.3-7.7); Neutrophils % (A) 84 %; Platelet Count 476 k/uL (150-450); RBC 4.59 m/uL (3.80-5.40); RDW 14.6 % (11.5-15.5); WBC 17.2 k/uL (3.8-10.6)
[2024-03-28 11:36] LABS: ALT 23 U/L (4-34); AST 26 U/L (14-36); African American GFR (CKD) >90 (>60 ml/min/1.73 sqM); Albumin 4.4 g/dL (3.5-5.0); Alkaline Phosphatase 103 U/L (38-126); Anion Gap 6 mmol/L; Blood Urea Nitrogen 14 mg/dL (7-17); Calcium 9.6 mg/dL (8.4-10.2); Carbon Dioxide 27 mmol/L (22-30); Chloride 106 mmol/L (98-107); Glucose 110 mg/dL (74-99); Non-African American GFR(CKD) >90 (>60 ml/min/1.73 sqM); Potassium 4.2 mmol/L (3.5-5.1); Sodium 139 mmol/L (137-145); Total Bilirubin 0.5 mg/dL (0.2-1.3); Total Protein 7.5 g/dL (6.3-8.2)
[2024-03-28 11:41] LABS: INR 0.9 (<1.2); Partial Thromboplastin Time 23.6 sec (22.0-30.0); Prothrombin Time 10.3 sec (10.0-12.5)
[2024-03-28 12:13] LABS: Appearance,Urine Clear (Clear); Bilirubin,Urine Negative (Negative); Blood,Urine Negative (Negative); Color,Urine Yellow; Glucose,Urine (UA) Negative (Negative); Ketones,Urine Negative (Negative); Leukocyte Esterase,Urine Negative (Negative); Nitrite,Urine Negative (Negative); Protein,Urine Trace (Negative); Specific Gravity,Urine 1.025 (1.001-1.035); Urobilinogen,Urine <2.0 mg/dL (<2.0)
== END 2024-03-28 12:10 | disposition other institution (70) ==
LOC: EC 09:52
DX: S72.141A Displaced intertrochanteric fracture of right femur, initial encounter for closed fracture (principal); F17.200 Nicotine dependence, unspecified, uncomplicated; Z88.0 Allergy status to penicillin; Z88.8 Allergy status to other drugs, medicaments and biological substances; Z88.1 Allergy status to other antibiotic agents; W18.30XA Fall on same level, unspecified, initial encounter
CPT/HCPCS: 36415; 71045; 73502; 80053; 81003; 83735; 85025; 85610; 85730; 93005; 96374; 99283

== ENCOUNTER 2024-07-15 18:06 | Emergency (ER) | payer OTHER ==
[2024-07-15 18:12] VITALS: RESP 18
[2024-07-15] MEDS: LIDOCAINE 1% INJ 10MG/ML (20 ML MDV) SQ ONE (19:00)
--- NOTE | 2024-07-15 20:07 | ED ---
Skin/Abscess/FB HPI - General Chief complaint: Skin/Abscess/Foreign Body Stated complaint: R hand pointer finger issues Time Seen by Provider: 07/15/24 19:45 Source: patient, RN notes reviewed Mode of arrival: ambulatory Limitations: no limitations - History of Present Illness Initial comments: 53-year-old female presented to the ER for evaluation of right index finger pain. Patient states for the past 2 to 3 days she has noticed pain swelling and what appears to be an abscess to the area. She has tried soaking her finger in pure rubbing alcohol and hydroperoxide without relief. She just states she burned her finger on the stove last week. No paresthesias to digit. No limited range of motion. No history of MRSA. No other complaints. - Related Data Home Medications Medication Instructions Recorded Confirmed Gabapentin 1,200 mg PO BID 12/18/21 03/28/24 Omeprazole 40 mg PO DAILY 01/28/22 03/28/24 QUEtiapine [SEROquel] 800 mg PO HS 03/28/24 03/28/24 Rimegepant Sulfate [Nurtec Odt] 75 mg PO Q48H 03/28/24 03/28/24 cloNIDine HCL [Catapres] 0.2 mg PO TID 03/28/24 03/28/24 Previous Rx's Medication Instructions Recorded Cephalexin [Keflex] 500 mg PO Q6HR 1 Days #28 cap 07/15/24 Allergies Allergy/AdvReac Type Severity Reaction Status Date / Time amoxicillin trihydrate AdvReac Nausea & Verified 07/15/24 18:09 [From Augmentin] Vomiting potassium clavulanate AdvReac Nausea & Verified 07/15/24 18:09 [From Augmentin] Vomiting Review of Systems ROS Statement: Those systems with pertinent positive or pertinent negative responses have been documented in the HPI. ROS Other: All systems not noted in ROS Statement are negative. Past Medical History Past Medical History: Asthma, GERD/Reflux, Pneumonia, Rheumatoid Arthritis (RA) Additional Past Medical History / Comment(s): Migraines, hialtal hernia, achalasia(causes difficulty swallowing), "leaky bladder", irregular heart beat, Pre-Diabetic. History of Any Multi-Drug Resistant Organisms: None Reported Past Surgical History: Section, Hernia Repair, Tubal Ligation Additional Past Surgical History / Comment(s): Ganglion cyst removed right hand, epidural pain procedures, EGD. Past Anesthesia/Blood Transfusion Reactions: No Reported Reaction Past Psychological History: Anxiety, Bipolar, Depression Smoking Status: Current every day smoker Past Alcohol Use History: None Reported Past Drug Use History: None Reported - Past Family History Mother Family Medical History: Deep Vein Thrombosis (DVT) General Exam Limitations: no limitations General appearance: alert, in no apparent distress Respiratory exam: Present: normal lung sounds bilaterally. Absent: respiratory distress, wheezes, rales, rhonchi, stridor Cardiovascular Exam: Present: regular rate, normal rhythm, normal heart sounds. Absent: systolic murmur, diastolic murmur, rubs, gallop, clicks Extremities exam: Present: normal inspection, full ROM, tenderness (Right second distal digit. Appears to be a felon as well. Brisk cap refill. 2+ right radial pulse. No focal bony tenderness.), normal capillary refill. Absent: pedal edema, joint swelling, calf tenderness Neurological exam: Present: alert, oriented X3, CN II-XII intact Skin exam: Present: warm, dry, intact, normal color. Absent: rash Course Vital Signs 07/15/24 07/15/24 18:09 20:45 Temperature 98 F 98.4 F Pulse Rate 83 78 Respiratory 18 18 Rate Blood Pressure 144/74 136/72 O2 Sat by Pulse 98 97 Oximetry Procedures - Incision & Drainage Consent Obtained: verbal consent Indication: felon Site: hand Size (cm): 2 Anesthetic Used: lidocaine 1%, without epi Amount (mLs): 8 (digital block) I&D Cleaning Method: Alcohol Wipe Sterile Field Used?: Yes Scalpel Used: #11 Ultrasound used: No Needle Aspiration Performed?: No Irrigation Performed?: No I&D Drainage Obtained: Pus, Blood Loculation Noted: probing needed to break Insertion of drain: No Culture Obtained?: Yes Patient Tolerated Procedure: well Medical Decision Making - Medical Decision Making Was pt. sent in by a medical professional or institution (, PA, BACKUP SAWYER, urgent care, hospital, or skilled nursing...) When possible be specific @ -No Did you speak to anyone other than the patient for history (EMS, parent, family, police, friend...)? What history was obtained from this source @ -No Did you review nursing and triage notes (agree or disagree)? Why? @ -I reviewed and agree with nursing and triage notes Were old charts reviewed (outside hosp., previous admission, EMS record, old EKG, old radiological studies, urgent care reports/EKG's, skilled nursing records)? Report findings @ -No old charts were reviewed Differential Diagnosis (chest pain, altered mental status, abdominal pain women, abdominal pain men, vaginal bleeding, weakness, fever, dyspnea, syncope, headache, dizziness, GI bleed, back pain, seizure, CVA, palpatations, mental health, musculoskeletal)? @ -Differential Musculoskeletal: Muscular strain, contusion, ligament sprain, fracture, arthritis, septic arthritis, bursitis, cellulitis, muscle spasm, nerve compression, DVT, arterial occlusion, herpes zoster, electrolyte abnormality, tumor.... This is not meant to be in all inclusive list EKG interpreted by me (3pts min.). @ -None done X-rays interpreted by me (1pt min.). @ -None done CT interpreted by me (1pt min.). @ -None done U/S interpreted by me (1pt. min.). @ -None done What testing was considered but not performed or refused? (CT, X-rays, U/S, labs)? Why? @ -None What meds were considered but not given or refused? Why? @ -None Did you discuss the management of the patient with other professionals (professionals i.e. , PA, BACKUP SAWYER, lab, RT, psych nurse, social studies department chair, cafeteria monitor, teacher, tactical debriefer officer, case operator)? Give summary @ -No Was smoking cessation discussed for >3mins.? @ -No Was critical care preformed (if so, how long)? @ -No Were there social determinants of health that impacted care today? How? (Homelessness, low income, unemployed, alcoholism, drug addiction, transportation, low edu. Level, literacy, decrease access to med. care, prison, rehab)? @ -No Was there de-escalation of care discussed even if they declined (Discuss DNR or withdrawal of care, Hospice)? DNR status @ -No What co-morbidities impacted this encounter? (DM, HTN, Smoking, COPD, CAD, Cancer, CVA, ARF, Chemo, Hep., AIDS, mental health diagnosis, sleep apnea, morbid obesity)? @ -None Was patient admitted / discharged? Hospital course, mention meds given and route, prescriptions, significant lab abnormalities, going to OR and other pertinent info. @ -Discharge. 53-year-old female presented to the ER for evaluation of right index finger pain. Vitals within normal limits. Exam there appears to be a felon noted to distal end. Patient is neurovascularly intact. I&D performed, see note above, with successful drainage of purulent material. Wound culture pending. Patient started on Keflex, first dose in the ER. Wound remained open for drainage. Wound care and return parameters discussed. Patient is stable for discharge and outpatient follow-up. Strict return parameters discussed. Patient discharged in stable condition with follow-up to PCP. Patient verbally expressed understanding and agreement with care plan. Case discussed with ED attending, Dr. Roa Undiagnosed new problem with uncertain prognosis? @ -No Drug Therapy requiring intensive monitoring for toxicity (Heparin, Nitro, Insulin, Cardizem)? @ -No Were any procedures done? @ -Yes, I&D Diagnosis/symptom? @ -Felon Acute, or Chronic, or Acute on Chronic? @ -Acute Uncomplicated (without systemic symptoms) or Complicated (systemic symptoms)? @ -Uncomplicated Side effects of treatment? @ -No Exacerbation, Progression, or Severe Exacerbation? @ -No Poses a threat to life or bodily function? How? (Chest pain, [place], [place], pneumonia, PE, COPD, DKA, ARF, appy, cholecystitis, CVA, Diverticulitis, Homicidal, Suicidal, threat to staff... and all critical care pts) @ -No Disposition Clinical Impression: Felon Disposition: HOME SELF-CARE Condition: Stable Instructions (If sedation given, give patient instructions): Abscess Incision and Drainage (ED) Additional Instructions: Take Keflex as prescribed and complete full course. Return to the ER for any new or worsening concerns. Prescriptions: Cephalexin [Keflex] 500 mg PO Q6HR 1 Days #28 cap Is patient prescribed a controlled substance at d/c from ED?: No Referrals: Stephanie Rubio MD [Primary Care Provider] - 1-2 days Time of Disposition: 20:09
[2024-07-15] MEDS: CEPHALEXIN 500 MG CAP PO STA (20:41)
[2024-07-15 21:40] VITALS: BP 136/72; PULSE 78; TEMP 98.4
== END 2024-07-15 20:50 | disposition home or self-care (01) ==
LOC: EC 18:06
DX: L03.011 Cellulitis of right finger (principal); F17.200 Nicotine dependence, unspecified, uncomplicated; Z88.0 Allergy status to penicillin; Z88.1 Allergy status to other antibiotic agents; Z88.8 Allergy status to other drugs, medicaments and biological substances
CPT/HCPCS: 87070; 87205; 99283; 10060; J2003

== ENCOUNTER 2024-10-23 12:57 | Emergency (ER) | payer OTHER ==
[2024-10-23 13:11] VITALS: TEMP 97.9
[2024-10-23 13:29] VITALS: RESP 18
--- NOTE | 2024-10-23 13:37 | ED ---
General Adult HPI - General Chief complaint: Chest Pain Stated complaint: fall, rib pain Time Seen by Provider: 10/23/24 13:13 Source: patient, RN notes reviewed, old records reviewed Mode of arrival: ambulatory Limitations: no limitations - History of Present Illness Initial comments: 53-year-old female with right-sided rib pain after an injury which occurred 4 days ago. Patient states she was climbing into a washer to get clothing out and she injured the right side of her chest wall. She has had no difficulty breathing. She has had mild persistent pain. No abdominal pain. - Related Data Home Medications Medication Instructions Recorded Confirmed Gabapentin 1,200 mg PO BID 12/18/21 03/28/24 Omeprazole 40 mg PO DAILY 01/28/22 03/28/24 QUEtiapine [SEROquel] 800 mg PO HS 03/28/24 03/28/24 Rimegepant Sulfate [Nurtec Odt] 75 mg PO Q48H 03/28/24 03/28/24 cloNIDine HCL [Catapres] 0.2 mg PO TID 03/28/24 03/28/24 Previous Rx's Medication Instructions Recorded Cephalexin [Keflex] 500 mg PO Q6HR 1 Days #28 cap 07/15/24 Allergies Allergy/AdvReac Type Severity Reaction Status Date / Time amoxicillin trihydrate AdvReac Nausea & Verified 07/15/24 18:09 [From Augmentin] Vomiting potassium clavulanate AdvReac Nausea & Verified 07/15/24 18:09 [From Augmentin] Vomiting Review of Systems ROS Statement: Those systems with pertinent positive or pertinent negative responses have been documented in the HPI. ROS Other: All systems not noted in ROS Statement are negative. Past Medical History Past Medical History: Asthma, GERD/Reflux, Pneumonia, Rheumatoid Arthritis (RA) Additional Past Medical History / Comment(s): Migraines, hialtal hernia, achalasia(causes difficulty swallowing), "leaky bladder", irregular heart beat, Pre-Diabetic. History of Any Multi-Drug Resistant Organisms: MRSA Date of last positivie culture/infection: 07/15/24 MDRO Source:: rt2 finger Past Surgical History: Section, Hernia Repair, Tubal Ligation Additional Past Surgical History / Comment(s): Ganglion cyst removed right hand, epidural pain procedures, EGD. Past Anesthesia/Blood Transfusion Reactions: No Reported Reaction Past Psychological History: Anxiety, Bipolar, Depression Smoking Status: Current every day smoker Past Alcohol Use History: None Reported Past Drug Use History: None Reported - Past Family History Mother Family Medical History: Deep Vein Thrombosis (DVT) General Exam Limitations: no limitations General appearance: alert, in no apparent distress Head exam: Present: atraumatic, normocephalic Eye exam: Present: normal appearance, PERRL ENT exam: Present: normal exam Respiratory exam: Present: normal lung sounds bilaterally, chest wall tenderness. Absent: respiratory distress, wheezes Cardiovascular Exam: Present: regular rate, normal rhythm GI/Abdominal exam: Present: soft. Absent: distended, tenderness, guarding Course Vital Signs 10/23/24 10/23/24 13:08 13:29 Temperature 97.9 F Pulse Rate 76 Respiratory 20 18 Rate Blood Pressure 119/72 O2 Sat by Pulse 97 Oximetry Medical Decision Making - Medical Decision Making Was pt. sent in by a medical professional or institution (ELVIN Valverde, SMOKE JUMPER SUPERVISOR, urgent care, hospital, or [facility]...) When possible be specific @ -No Did you speak to anyone other than the patient for history (EMS, parent, family, police, friend...)? What history was obtained from this source @ -No Did you review nursing and triage notes (agree or disagree)? Why? @ -I reviewed and agree with nursing and triage notes Were old charts reviewed (outside hosp., previous admission, EMS record, old EKG, old radiological studies, urgent care reports/EKG's, [facility] records)? Report findings @ -No old charts were reviewed Differential Diagnosis rib contusion, rib fracture, pneumothorax EKG interpreted by me (3pts min.). @ -As above X-rays interpreted by me (1pt min.). @Chest x-ray with rib films probable nondisplaced fifth and sixth rib fracture CT interpreted by me (1pt min.). @ -None done U/S interpreted by me (1pt. min.). @ -None done What testing was considered but not performed or refused? (CT, X-rays, U/S, labs)? Why? @ -None What meds were considered but not given or refused? Why? @ -None Did you discuss the management of the patient with other professionals (morena holden i.e. Dr., PA, SMOKE JUMPER SUPERVISOR, lab, RT, psych nurse, director social welfare, filling technician, teacher, marketing officer, rn case mgr)? Give summary @ -No Was smoking cessation discussed for >3mins.? @ -No Was critical care preformed (if so, how long)? @ -No Were there social determinants of health that impacted care today? How? (Homelessness, low income, unemployed, alcoholism, drug addiction, transportation, low edu. Level, literacy, decrease access to med. care, snf, rehab)? @ -No Was there de-escalation of care discussed even if they declined (Discuss DNR or withdrawal of care, Hospice)? DNR status @ -No What co-morbidities impacted this encounter? (DM, HTN, Smoking, COPD, CAD, Cancer, CVA, ARF, Chemo, Hep., AIDS, mental health diagnosis, sleep apnea, morbid obesity)? @ -None Was patient admitted / discharged? Hospital course, mention meds given and route, prescriptions, significant lab abnormalities, going to OR and other pertinent info. @ -53-year-old female with reproducible right-sided chest wall pain after minor injury. X-rays a of the chest and ribs showing a nondisplaced fifth and sixth rib fracture patient will use Tylenol Motrin for pain control. Undiagnosed new problem with uncertain prognosis? @ -No Drug Therapy requiring intensive monitoring for toxicity (Heparin, Nitro, Insulin, Cardizem)? @ -No Were any procedures done? @ -No Diagnosis/symptom? @Rib fracture Acute, or Chronic, or Acute on Chronic? @Acute Uncomplicated (without systemic symptoms) or Complicated (systemic symptoms)? @ -Default Side effects of treatment? @ -No Exacerbation, Progression, or Severe Exacerbation? @ -No Poses a threat to life or bodily function? How? (Chest pain, [place], [place], pneumonia, PE, COPD, DKA, ARF, appy, cholecystitis, CVA, Diverticulitis, Homicidal, Suicidal, threat to staff... and all critical care pts) @ -No Disposition Clinical Impression: Rib fracture Disposition: HOME SELF-CARE Condition: Fair Instructions (If sedation given, give patient instructions): Rib Contusion (ED), Rib Fracture (ED) Is patient prescribed a controlled substance at d/c from ED?: No Referrals: Stephanie Rubio MD [Primary Care Provider] - 1-2 days Time of Disposition: 13:54
--- NOTE | 2024-10-23 13:51 | XR ---
EXAMINATION TYPE: XR ribs RT w pa chest xray DATE OF EXAM: 10/23/2024 1:44 PM COMPARISON: Prior chest x-ray March 28, 2024 CLINICAL INDICATION: Female, 53 years old with history of pain after fall; PHH, pain TECHNIQUE: XR ribs RT w pa chest xray; Frontal and oblique views of the ribs with frontal chest radio graph. FINDINGS: There is subtle irregularity and cortical disruption involving the anterior aspect of the r ight fifth and sixth ribs suspicious for acute minimally displaced fractures. Overall, the lungs are clear. The cardiac silhouette is normal in size. Chondroid lesion left humeral head is present. Co nsider bone infarct. Surgical change right surgical neck is noted. IMPRESSION: Probable acute nondisplaced fractures anterior right fifth and sixth ribs. Correlate for point tenderness at this level. No acute cardiopulmonary process. [facility], , 10/23/2024 1:49 PM
[2024-10-23 14:24] VITALS: BP 118/82; PULSE 70
== END 2024-10-23 14:29 | disposition home or self-care (01) ==
LOC: EC 12:57
DX: S22.31XA Fracture of one rib, right side, initial encounter for closed fracture (principal); F17.200 Nicotine dependence, unspecified, uncomplicated; Z88.0 Allergy status to penicillin; Z88.1 Allergy status to other antibiotic agents; Y93.39 Activity, other involving climbing, rappelling and jumping off
CPT/HCPCS: 99284

== ENCOUNTER 2025-01-31 14:10 | Emergency (ER) | payer OTHER ==
[2025-01-31 14:35] VITALS: BP 115/64; PULSE 107; RESP 20; TEMP 98.4
--- NOTE | 2025-01-31 17:08 | XR ---
EXAMINATION TYPE: XR knee complete RT DATE OF EXAM: 01/31/2025 5:00 PM COMPARISON: None CLINICAL INDICATION: Female, 54 years old with history of fall; PHH, pain TECHNIQUE: XR knee complete RT 3 views submitted. FINDINGS: Intramedullary ward in the femur appears intact. No evidence of any acute osseous pathology or soft tissue swelling. IMPRESSION: 1. No acute osseous pathology. 2. Fixation hardware is intact no significant osteoarthritic changes. [facility], , 01/31/2025 5:05 PM
--- NOTE | 2025-01-31 17:08 | XR ---
EXAMINATION TYPE: XR shoulder complete RT DATE OF EXAM: 01/31/2025 5:00 PM COMPARISON: None CLINICAL INDICATION: Female, 54 years old with history of fall; PHH, pain TECHNIQUE: XR shoulder complete RT; examined in AP, internally rotated and scapular Y projections. FINDINGS: No evidence of acute osseous pathology, joint dislocation, or soft tissue swelling. The remaining po rtions of the visualized chest are unremarkable. Rotator cuff repair screw is present with abnormal d eformity to the lateral aspect of the humeral head. IMPRESSION: 1. No acute osseous pathology. 2. Postsurgical changes hardware appears intact. [facility], , 01/31/2025 5:06 PM
--- NOTE | 2025-01-31 17:09 | XR ---
EXAMINATION TYPE: XR lumbar spine 2 or 3V DATE OF EXAM: 01/31/2025 5:00 PM COMPARISON: None CLINICAL INDICATION: Female, 54 years old with history of fall; PHH, pain TECHNIQUE: XR lumbar spine 2 or 3V - Frontal, lateral and coned in L5-S1 lateral views of the spine. FINDINGS: No evidence of any acute osseous pathology. No evidence of loss of vertebral body height i s seen. There is normal alignment of the lumbar vertebral bodies. Scattered disc space narrowing. Mul tilevel marginal osteophyte formation throughout the visualized spine. There is facet joint arthropat hy throughout the spine. Scattered at least mild neural foraminal stenosis. Atherosclerosis of the arterial vasculature. IMPRESSION: 1. No acute fracture. 2. Mild multilevel disc degeneration. [facility], , 01/31/2025 5:07 PM
[2025-01-31] MEDS: KETOROLAC 15 MG/ML 1 ML VIAL IM STA (17:39)
--- NOTE | 2025-01-31 17:40 | ED ---
Fall HPI - General Chief Complaint: Fall Stated Complaint: right shoulder pain, right knee pain Time Seen by Provider: 01/31/25 17:23 Source: patient, RN notes reviewed Mode of arrival: ambulatory - History of Present Illness Initial Comments: 54-year-old female presenting for fall 1 month ago. States 1 month ago she tripped over her own feet and fell onto her right side. Endorses right shoulder pain, left lower back pain, and right knee pain since the fall. She is able to ambulate normally. States she is having pain while lifting her right shoulder. Denies chest pain, shortness of breath, abdominal pain, urinary symptoms, fevers. Denies head injury from the fall. - Related Data Home Medications Medication Instructions Recorded Confirmed Gabapentin 1,200 mg PO BID 12/18/21 03/28/24 Omeprazole 40 mg PO DAILY 01/28/22 03/28/24 QUEtiapine [SEROquel] 800 mg PO HS 03/28/24 03/28/24 Rimegepant Sulfate [Nurtec Odt] 75 mg PO Q48H 03/28/24 03/28/24 cloNIDine HCL [Catapres] 0.2 mg PO TID 03/28/24 03/28/24 Previous Rx's Medication Instructions Recorded Cephalexin [Keflex] 500 mg PO Q6HR 1 Days #28 cap 07/15/24 Ibuprofen [Motrin] 600 mg PO Q8HR PRN #24 tab 10/23/24 Cyclobenzaprine [Flexeril] 10 mg PO TID PRN #15 tab 01/31/25 Ketorolac [Toradol] 10 mg PO Q8HR #15 tab 01/31/25 Allergies Allergy/AdvReac Type Severity Reaction Status Date / Time amoxicillin trihydrate AdvReac Nausea & Verified 07/15/24 18:09 [From Augmentin] Vomiting potassium clavulanate AdvReac Nausea & Verified 07/15/24 18:09 [From Augmentin] Vomiting Review of Systems ROS Statement: Those systems with pertinent positive or pertinent negative responses have been documented in the HPI. ROS Other: All systems not noted in ROS Statement are negative. Past Medical History Past Medical History: Asthma, GERD/Reflux, Pneumonia, Rheumatoid Arthritis (RA) Additional Past Medical History / Comment(s): Migraines, hialtal hernia, achalasia(causes difficulty swallowing), "leaky bladder", irregular heart beat, Pre-Diabetic. History of Any Multi-Drug Resistant Organisms: MRSA Date of last positivie culture/infection: 07/15/24 MDRO Source:: rt2 finger Past Surgical History: Section, Hernia Repair, Tubal Ligation Additional Past Surgical History / Comment(s): Ganglion cyst removed right hand, epidural pain procedures, EGD. Past Anesthesia/Blood Transfusion Reactions: No Reported Reaction Past Psychological History: Anxiety, Bipolar, Depression Smoking Status: Current every day smoker Past Alcohol Use History: None Reported Past Drug Use History: None Reported - Past Family History Mother Family Medical History: Deep Vein Thrombosis (DVT) General Exam Limitations: no limitations General appearance: alert, in no apparent distress Head exam: Present: atraumatic, normocephalic, normal inspection Eye exam: Present: normal appearance, PERRL, EOMI. Absent: scleral icterus, conjunctival injection, periorbital swelling ENT exam: Present: normal exam, mucous membranes moist Neck exam: Present: normal inspection. Absent: tenderness, meningismus, lymphadenopathy Respiratory exam: Present: normal lung sounds bilaterally. Absent: respiratory distress, wheezes, rales, rhonchi, stridor Cardiovascular Exam: Present: regular rate, normal rhythm, normal heart sounds. Absent: systolic murmur, diastolic murmur, rubs, gallop, clicks Right Shoulder Exam: Present: normal inspection. Absent: full ROM (Limited flexion and extension of right shoulder. No overlying skin changes. Positive Neer's and empty can test), tenderness, swelling, abrasion Upper Arm exam: Present: normal inspection, full ROM. Absent: tenderness, swelling Vascular: Absent: vascular compromise, radial pulse Right Upper Leg exam: Present: normal inspection, full ROM. Absent: tenderness, swelling Knee exam: Present: normal inspection, full ROM. Absent: tenderness, swelling Lower Leg exam: Present: normal inspection, full ROM. Absent: tenderness, swelling Neurovascular tendon exam: Present: no vascular compromise. Absent: pulse deficit, abnormal cap refill, motor deficit Back exam: Present: normal inspection, full ROM, other (Full strength and range of motion in the bilateral hips, no saddle anesthesia, full sensation and DP pulses bilaterally). Absent: tenderness, CVA tenderness (R), CVA tenderness (L), muscle spasm, paraspinal tenderness Neurological exam: Present: alert, oriented X3 Psychiatric exam: Present: normal affect, normal mood Skin exam: Present: warm, dry, intact, normal color. Absent: rash Course Vital Signs 01/31/25 14:33 Temperature 98.4 F Pulse Rate 107 H Respiratory 20 Rate Blood Pressure 115/64 O2 Sat by Pulse 96 Oximetry Medical Decision Making - Medical Decision Making Was pt. sent in by a medical professional or institution (, PA, TRAVELING SALES EXECUTIVE, urgent care, hospital, or residential...) When possible be specific @ -No Did you speak to anyone other than the patient for history (EMS, parent, family, police, friend...)? What history was obtained from this source @ -No Did you review nursing and triage notes (agree or disagree)? Why? @ -I reviewed and agree with nursing and triage notes Were old charts reviewed (outside hosp., previous admission, EMS record, old EKG, old radiological studies, urgent care reports/EKG's, residential records)? Report findings @ -No old charts were reviewed Differential Diagnosis (chest pain, altered mental status, abdominal pain women, abdominal pain men, vaginal bleeding, weakness, fever, dyspnea, syncope, headache, dizziness, GI bleed, back pain, seizure, CVA, palpatations, mental health, musculoskeletal)? @ -Differential Musculoskeletal Muscular strain, contusion, ligament sprain, fracture, arthritis, septic arthritis, bursitis, cellulitis, muscle spasm, nerve compression, DVT, arterial occlusion, herpes zoster, electrolyte abnormality, tumor.... This is not meant to be in all inclusive list EKG interpreted by me (3pts min.). @ -None X-rays interpreted by me (1pt min.). @ -X-ray right shoulder, right knee, and lumbar spine no acute process CT interpreted by me (1pt min.). @ -None done U/S interpreted by me (1pt. min.). @ -None done What testing was considered but not performed or refused? (CT, X-rays, U/S, labs)? Why? @ -None What meds were considered but not given or refused? Why? @ -None Did you discuss the management of the patient with other professionals (professionals i.e. , ELVIN, TRAVELING SALES EXECUTIVE, lab, RT, psych nurse, social science professor, foreign language teacher, teacher, driver license reviewing officer, complex case manager)? Give summary @ -No Was smoking cessation discussed for >3mins.? @ -No Was critical care preformed (if so, how long)? @ -No Were there social determinants of health that impacted care today? How? (Homelessness, low income, unemployed, alcoholism, drug addiction, transportation, low edu. Level, literacy, decrease access to med. care, care home, rehab)? @ -No Was there de-escalation of care discussed even if they declined (Discuss DNR or withdrawal of care, Hospice)? DNR status @ -No What co-morbidities impacted this encounter? (DM, HTN, Smoking, COPD, CAD, Cancer, CVA, ARF, Chemo, Hep., AIDS, mental health diagnosis, sleep apnea, morbid obesity)? @ -None Was patient admitted / discharged? Hospital course, mention meds given and ro cahto, prescriptions, significant lab abnormalities, going to OR and other pertinent info. @ -Discharge. Patient was provided with dose of IM Toradol. X-rays right shoulder, right knee lumbar spine show no acute osseous abnormality. Discussed results with patient. Discussed diagnosis of right shoulder strain and right knee strain. Advised to follow-up with orthopedics. Provided with outpatient prescription for Toradol and Flexeril. Appropriate return precautions and supportive care discussed. Case was discussed with my ED attending Dr. Connelly. Undiagnosed new problem with uncertain prognosis? @ -No Drug Therapy requiring intensive monitoring for toxicity (Heparin, Nitro, Insulin, Cardizem)? @ -No Were any procedures done? @ -No Diagnosis/symptom? @ -Right shoulder strain, right knee strain Acute, or Chronic, or Acute on Chronic? @ -Acute Uncomplicated (without systemic symptoms) or Complicated (systemic symptoms)? @ -Uncomplicated Side effects of treatment? @ -No Exacerbation, Progression, or Severe Exacerbation? @ -No Poses a threat to life or bodily function? How? (Chest pain, [place], [place], pneumonia, PE, COPD, DKA, ARF, appy, cholecystitis, CVA, Diverticulitis, Homicidal, Suic idal, threat to staff... and all critical care pts) @ -No Disposition Clinical Impression: Right shoulder strain, Strain of right knee, Low back strain Disposition: HOME SELF-CARE Condition: Stable Instructions (If sedation given, give patient instructions): Muscle Strain (ED) Additional Instructions: Follow-up with orthopedics as discussed. Take Toradol and Flexeril as needed for pain. Please return to the Emergency Department if symptoms worsen or any other concerns. Prescriptions: Cyclobenzaprine [Flexeril] 10 mg PO TID PRN #15 tab PRN Reason: Muscle Spasm Ketorolac [Toradol] 10 mg PO Q8HR #15 tab Is patient prescribed a controlled substance at d/c from ED?: No Referrals: Stephanie Rubio MD [Primary Care Provider] - 1-2 days Madie Mcadams DO [Doctor of Osteopathic Medicine] - 1-2 days Time of Disposition: 17:42
== END 2025-01-31 17:55 | disposition home or self-care (01) ==
LOC: EC 14:10
DX: S46.911A Strain of unspecified muscle, fascia and tendon at shoulder and upper arm level, right arm, initial encounter (principal); S39.012A Strain of muscle, fascia and tendon of lower back, initial encounter; S86.911A Strain of unspecified muscle(s) and tendon(s) at lower leg level, right leg, initial encounter; F17.200 Nicotine dependence, unspecified, uncomplicated; Z88.0 Allergy status to penicillin; Z88.8 Allergy status to other drugs, medicaments and biological substances; W01.0XXA Fall on same level from slipping, tripping and stumbling without subsequent striking against object, initial encounter
CPT/HCPCS: 72100; 73030; 73562; 99283; 96372; J1885